=== PATIENT | female | born 1940 | race Caucasian/White ===

== ENCOUNTER → 2019-11-16 | Outpatient (CLI) | payer MEDICARE, BC ==
[2019-11-16 11:51] LABS: HCT 43.4 % (34.0-46.0); HGB 13.9 gm/dL (11.4-16.0); MCH 32.5 pg (25.0-35.0); MCV 101.4 fL (80.0-100.0); Mean Platelet Volume 7.6; Platelet Count 333 k/uL (150-450); RBC 4.28 m/uL (3.80-5.40); RDW 12.2 % (11.5-15.5); WBC 8.6 k/uL (3.8-10.6)
[2019-11-16 11:53] LABS: INR 0.9 (<1.2); Partial Thromboplastin Time 25.2 sec (22.0-30.0)
[2019-11-16 12:00] LABS: Appearance,Urine Cloudy (Clear); Bacteria,Urine Many /hpf; Bilirubin,Urine Negative (Negative); Blood,Urine Negative (Negative); Color,Urine Yellow; Glucose,Urine (UA) Negative (Negative); Hyaline Casts,Urine 1 /lpf (0-2); Ketones,Urine Negative (Negative); Leukocyte Esterase,Urine Large (Negative); Mucus,Urine Rare /hpf; Nitrite,Urine Negative (Negative); PH, Urine 5.5 (5.0-8.0); Protein,Urine Negative (Negative); RBC,Urine 3 /hpf (0-5); Specific Gravity,Urine 1.017 (1.001-1.035); Squamous Epithelial Cell,Urine <1 /hpf (0-4); Urobilinogen,Urine <2.0 mg/dL (<2.0); WBC,Urine 102 /hpf (0-5)
[2019-11-16 12:01] LABS: Albumin 3.8 g/dL (3.5-5.0); Calcium 9.7 mg/dL (8.4-10.2); Potassium 4.6 mmol/L (3.5-5.1); Total Bilirubin 0.9 mg/dL (0.2-1.3)
== END | disposition home or self-care (01) ==
LOC: LABPAT 10:25
PROVIDERS: ATTEND Orthopaedic Surgery
DX: Z01.812 Encounter for preprocedural laboratory examination (principal); Z01.818 Encounter for other preprocedural examination; Z79.01 Long term (current) use of anticoagulants
CPT/HCPCS: 36415; 80053; 81001; 85027; 85610; 85730; 87070; 93005

== ENCOUNTER 2019-12-01 05:32 | Inpatient (IN) | payer MEDICARE, BC ==
[2019-11-25 16:35] VITALS: BMI 25.0
[~2019-12-01 05:32] MED LIST: ACETAMINOPHEN TAB 500 MG TAB PO ONE; DEXAMETHASONE SOD PHOSPHATE 10 MG/ML 1 ML VIAL IV ONE; GABAPENTIN 300 MG CAP PO ONE; LIDOCAINE 1% 20 ML VIAL (10MG/ML) FOR IV START INTRADERMA PRN; MELOXICAM 7.5 MG TAB PO ONE; MIDAZOLAM 2 MG/2 ML VIAL IV PRN; ONDANSETRON 4 MG/2 ML VIAL IVP ONE; SCOPOLAMINE 1.5MG/72HR PATCH TRANSDERM ONE; TRANEXAMIC ACID 1,000 MG in SODIUM CHLORIDE 0.9% 100 ML IVPB ONE
[2019-12-01] MEDS: LACTATED RINGERS 1,000 ML IV SCH ×2 (06:10→23:02)
[2019-12-01] MEDS ORDERED: HEPARIN SODIUM,PORCINE 10,000 UNIT/ML 1 ML VIAL ONE (06:55)
[2019-12-01] MEDS ORDERED: ONDANSETRON 4 MG/2 ML VIAL ONE (06:55)
[2019-12-01] MEDS ORDERED: fentaNYL (PF) 50 MCG/ML 2 ML AMP ONE (06:55)
[2019-12-01] MEDS ORDERED: SODIUM CHLORIDE 0.9% 100 ML BAG ONE (06:55)
[2019-12-01] MEDS ORDERED: TRANEXAMIC ACID 1,000 MG/10 ML VIAL ONE (06:55)
[2019-12-01] MEDS ORDERED: MIDAZOLAM 2 MG/2 ML VIAL ONE (06:55)
[2019-12-01] MEDS ORDERED: LACTATED RINGERS 1,000 ML BAG IV ONE (06:55)
[2019-12-01] MEDS ORDERED: DIAZEPAM 5 MG TAB PO PRN (07:00)
[2019-12-01] MEDS ORDERED: hydrOXYzine PAMOATE 25 MG CAP PO PRN (07:00)
[2019-12-01] MEDS ORDERED: HYDROmorphone 0.5 MG/0.5 ML SYRINGE IVP PRN ×3 (07:00)
[2019-12-01] MEDS ORDERED: NALOXONE 0.4 MG/ML 1 ML VIAL IV PRN (07:00)
[2019-12-01] MEDS ORDERED: ceFAZolin 3,000 MG in SODIUM CHLORIDE 0.9% IRRIGATIO 3,000 ML IRRIGATION ONE (07:30)
[2019-12-01] MEDS: ROPIVACAINE 246.25 MG, EPINEPHrine 0.5 MG, KETOROLAC 30 MG, cloNIDine HCL/PF 80 MCG, WA... MISCELLANE ONE ×10 (07:41→08:18)
[2019-12-01] MEDS ORDERED: LACTATED RINGERS 1,000 ML IV ONE (08:15)
--- NOTE | 2019-12-01 08:39 | FL ---
Fluoroscopy HISTORY: Hip replacement 49 seconds fluoroscopy time supplied to the referring clinician. 2 intraoperative C-arm images docum ent the procedure. See dictated report from orthopedic surgery.
--- NOTE | 2019-12-01 08:41 | XR ---
Right hip HISTORY: Hip replacement 2 intraoperative C-arm images document the seizure.
--- NOTE | 2019-12-01 08:52 | P.OP ---
Date of Procedure: 12/01/19 Preoperative Diagnosis: Severe osteoarthritis right hip Postoperative Diagnosis: Severe osteoarthritis right hip Procedure(s) Performed: Right total hip arthroplasty with a direct anterior approach Implants: Grissom [employer] nephew Polarstem size 7 standard [employer]om [employer]hew R3, 3 hole acetabular shell, 56 mm [employer]hew reflection 6.5 mm cancellus screw, 20 mm 2 [employer] R3, XLPE 20 acetabular liner [employer]hew Oxinium femoral head 36 m, +0 All components were press-fit. The articulation is Oxinium on polyethylene. Anesthesia: spinal Surgeon: Henry Marquez Former Hand #1: Yue Nolan Estimated Blood Loss (ml): 200 Pathology: other (Femoral head) Condition: stable Disposition: PACU Indications for Procedure: After failure of conservative treatment we discussed the surgical and nonsurgical treatment options at length. Patient wishes to proceed with a total hip arthroplasty with a direct anterior approach. Complications specific to this procedure were discussed at length, including but not limited to infection, leg length discrepancy, dislocation, and nerve injury. Patient is aware of all these complications and informed consent was obtained Operative Findings: The operative findings are consistent with severe osteoarthritis of the right hip Description of Procedure: Patient was seen and evaluated in the preoperative area, consent was reviewed, and the surgical site was marked with a skin marker. Patient was then brought to the operating room and given prophylactic antibiotics intravenously. 1 g of Tranexamic acid was also given. A spinal anesthetic was administered by the anesthesia department. The patient was then placed on the [place] table with the bony prominences well-padded. The hip area was then prepped and draped in usual sterile fashion. A universal timeout was then performed, which confirmed the patient's name, surgical site, ALLERGIES, and procedure being performed. Next the incision site was located at 1 cm distal and 1 cm lateral to the anterior superior iliac spine. The skin and subcutaneous tissues were sharply incised. Incision was carefully dissected down to the fascia overlying the tensor fascia chandrika muscle. This fascia was then incised in line with the incision. Next, using blunt finger dissection, the tensor fascia chandrika muscle was dissected off its investing fascia. The muscle was then carefully retracted laterally with a cobra retractor over the lateral neck of the femur. Next, the circumflex vessels were identified and cauterized using the AquaMantis device. The anterior hip capsule was then exposed. The capsule was then opened and an inverted T fashion. Cobra retractors were then placed intracapsularly. The proximal femur was then visualized. The femoral neck was then osteotomized appropriate level above the lesser trochanter. Small amount of traction was placed with the [place] table. A small wedge of bone was then removed from the remaining femoral head. Next, using a corkscrew femoral head was easily removed from the acetabulum. On gross visual inspection, the femoral head had complete loss of articular cartilage in multiple periarticular osteophytes. Attention was then turned to the acetabulum. the acetabulum was exposed and any remaining labrum was excised. Sequential reaming of the acetabulum was performed using fluoroscopic guidance. When the appropriate size was reached, a trial was then placed. The position and fit of the trial was checked with fluoroscopy. The trial was then removed. Then, using fluoroscopic guidance, the final implant was impacted at 20 of anteversion and 40 of abduction, and fully seated in the acetabulum. 2 screws were then placed in the acetabulum. Again fluoroscopy was used to check position of the screws. Next, the liner was then impacted, with a 20 elevated liner located in the anterior superior quadrant. Component locking was confirmed. Attention was then directed to the femur. With the aid of the [place] table, the femur was externally rotated to approximately 130, extended, and abducted under the opposite leg. A side hook was then placed under the proximal femur, and the side hook elevator was used to elevate the proximal femur. Retractors were then placed. A capsular release was performed, as well as a release of the conjoined tendon, which afforded excellent visualization of the proximal femur. Next, a box osteotome was used to lateralize the proximal femur. A hand or machine paster was then used to locate the femoral canal. Sequential broaching was then performed with appropriate size which afforded excellent fixation in the proximal femur. A trial was then placed with appropriate head and neck, and the hip was gently reduced with the aid of the [place] table. Fluoroscopy was then used to check position of the components, as well as to ensure equal leg lengths. The hip was then gently dislocated and the trials were then removed. Final implants were then impacted and the hip was again reduced. Final fluoroscopic x-rays confirmed that the components were in anatomic position, as well as equal leg lengths. The hip was also taken through range of motion, and found to be stable. The hip was then copiously irrigated with antibiotic solution with pulsatile lavage. The hip was then irrigated with Irrisept solution. The soft tissues were then injected with a ropivacaine solution, which consisted of 246.25 mg of ropivacaine, 0.5 mg of epinephrine, 30 mg of Toradol, 80 g of clonidine, and 48.45 mL of sterile water, for a total of 100 mL of fluid injected. A second dose of 1 g of Tranexamic acid was also given. the fascia was then closed with 2-0 strata fix suture. The subcutaneous tissue was closed with 3-0 Vicryl. The subcuticular tissue was closed with 3-0 strata fix suture. The skin was then closed with Dermabond glue and a sterile silver dressing. The patient was then transferred to the recovery room in stable condition. The assistant store director GENOVEVA Shi was required due to the complexity of surgery, and the need for skilled certified surgical first assistant for positioning, draping, exposure, retraction, and closure of the wound.
--- NOTE | 2019-12-01 09:07 | XR ---
Limited right hip HISTORY: Postop Single frontal view of the right hip Patient is status post right hip arthroplasty. Bone mineralization is reduced. Lucency in the soft ti ssues is consistent with postop state. Small ossific density inferior to the femoral neck region may be postoperative. There is anatomic alignment. IMPRESSION: Orthopedic follow-up as described.
[2019-12-01] MEDS: HYDROmorphone 0.5 MG/0.5 ML SYRINGE IVP PRN ×5 (10:55→12:30)
[2019-12-01] MEDS: SODIUM CHLORIDE 0.9% 1,000 ML IV SCH ×2 (19:17→21:30)
[2019-12-01] MEDS: LISINOPRIL 2.5 MG TAB PO SCH (21:27)
[2019-12-01] MEDS: ATORVASTATIN 20 MG TAB PO SCH (21:28)
[2019-12-01] MEDS: ASPIRIN 325 MG TAB PO SCH (21:28)
[2019-12-01] MEDS: HYDROcodone/APAP 5-325MG 1 EACH TAB PO PRN (21:28)
[2019-12-01] MEDS: SENNOSIDES-DOCUSATE SODIUM 1 EACH TAB PO SCH (21:28)
--- NOTE | 2019-12-01 21:49 | P.CONS ---
History of Present Illness - Reason for Consult Consult date: 12/01/19 Medical management Requesting physician: Henry Marquez - Chief Complaint Right hip surgery - History of Present Illness Consultation: This is a pleasant 79-year-old patient of Dr. Wayne. Chronic stable medical conditions include hypertension, hyperlipidemia, osteoarthritis, diverticulosis, 1 functioning kidney,. Patient has a complication of colonoscope he had a sp lenectomy. Patient underwent right total hip arthroplasty. Postprocedure pain is controlled. No nausea vomiting. Laying in bed. Did tolerate her supper. No chest pain or shortness of breath. Lying in bed. Review of systems: GEN.: Tired EYES: None HEENT: None NECK: None RESPIRATORY: None CARDIOVASCULAR: None GASTROINTESTINAL: None GENITOURINARY: None MUSCULOSKELETAL: [Joint pains LYMPHATICS: None HEMATOLOGICAL: None PSYCHIATRY: None NEUROLOGICAL: None Social history: Smoked a pack daily for 25 years stopped in 1979. 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 Alcohol rarely. Family history: Reviewed, noncontributory to presentation Physical examination: VITAL SIGNS: 98, 64, 19, 102/64, 98% room air GENERAL: BMI 25.4, laying in bed comfortable. EYES: Pupils equal. Conjunctiva normal. HEENT: External appearance of nose and ears normal, oral cavity grossly normal. NECK: JVD not raised; masses not palpable. HEART: First and second heart sounds are normal; no edema. LUNGS: Respiratory rate normal; clear to auscultation. ABDOMEN: Soft, nontender, liver spleen not palpable, no masses palpable. PSYCH: Alert and oriented x3; mood and affect normal. NEUROLOGICAL: Cranial nerves grossly intact; no facial asymmetry, power and sensation grossly intact. LYMPHATICS: No lymph nodes palpable in the axilla and neck MUSCULOSKELETAL: Evidence of OA is pretty the hands, dressing over the right hip INVESTIGATIONS, reviewed in the clinical context: Lab. From November 16: White count 8.6 hemoglobin 13.9 potassium 4.6 creatinine 0.97 Assessment: -Right total hip arthroplasty -Essential hypertension -Hyperlipidemia -Primary osteoarthritis multiple joints bilaterally -Colonic diverticulosis -Splenectomy, history of Plan: Home medications resumed. Pain control is in place. Patient is on aspirin for DVT prophylaxis. Care was discussed with the patient. Questions were answered. Thank you Dr. Marquez Past Medical History Past Medical History: CVA/TIA, Hyperlipidemia, Hypertension, Osteoarthritis (OA) Additional Past Medical History / Comment(s): TIA 2013-no residual effects, hx. 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 Smoking Status: Former smoker Past Alcohol Use History: Rare Additional Past Alcohol Use History / Comment(s): quit smoking 1979, smoked from age of 15, 1ppd Past Drug Use History: None Reported - Past Family History Mother Family Medical History: No Reported History Medications and Allergies Home Medications Medication Instructions Recorded Confirmed Type Acetaminophen [Tylenol Arthritis] 650 mg PO Q6H PRN 11/25/19 12/01/19 History Aspercreme W/Lidocaine 1 applic TOPICAL TID PRN 11/25/19 History Aspirin 81 mg PO DAILY 11/25/19 12/01/19 History Atorvastatin [Lipitor] 20 mg PO HS 11/25/19 12/01/19 History Lisinopril [Zestril] 2.5 mg PO HS 11/25/19 12/01/19 History Allergies Allergy/AdvReac Type Severity Reaction Status Date / Time ciprofloxacin [From Cipro] Allergy Itching, Verified 11/25/19 15:30 blistered skin Physical Exam Vitals: Vital Signs Temp Pulse Pulse Resp BP BP Pulse Ox 12/01/19 19:12 98.0 F 64 19 102/64 98 12/01/19 15:19 98.2 F 67 15 130/73 94 L 12/01/19 14:30 66 16 116/77 95 12/01/19 13:25 58 L 16 108/63 99 12/01/19 12:55 60 16 118/66 99 12/01/19 12:30 66 16 106/68 97 12/01/19 12:15 63 16 112/63 97 12/01/19 12:00 66 16 128/78 98 12/01/19 11:25 62 18 112/68 95 12/01/19 10:55 66 16 111/62 97 12/01/19 10:30 63 16 113/63 96 12/01/19 10:00 64 16 108/59 97 12/01/19 09:45 68 16 107/63 99 12/01/19 09:30 64 16 108/64 97 12/01/19 09:15 68 16 99/61 95 12/01/19 09:00 64 16 103/59 93 L 12/01/19 08:47 97 F L 67 16 101/57 95 12/01/19 05:59 97.6 F 73 18 140/76 93 L Intake and Output 12/01/19 12/01/19 12/01/19 06:59 14:59 22:59 Intake Total 300 751 Output Total 400 Balance 300 351 Intake: IV 300 751 Output: Urine 200 Estimated Blood Loss 200 Other: # Voids 1 Weight 76.9 kg 76.9 kg
[2019-12-02] MEDS: HYDROcodone/APAP 5-325MG 1 EACH TAB PO PRN ×4 (04:32→21:58)
[2019-12-02] MEDS: ASPIRIN 325 MG TAB PO SCH ×2 (07:28→21:18)
[2019-12-02] MEDS: MELOXICAM 7.5 MG TAB PO SCH (07:29)
[2019-12-02 07:35] LABS: Basophils # (A) 0.1 k/uL (0-0.2); Basophils % (A) 1 %; Eosinophils % (A) 0 %; HCT 32.3 % (34.0-46.0); Lymphocytes # (A) 2.6 k/uL (1.0-4.8); Lymphocytes % (A) 23 %; MCH 33.3 pg (25.0-35.0); MCHC 32.5 g/dL (31.0-37.0); MCV 102.7 fL (80.0-100.0); Macrocytosis Slight; Mean Platelet Volume 7.6; Monocytes # (A) 1.1 k/uL (0-1.0); Monocytes % (A) 11 %; Neutrophils # (A) 6.9 k/uL (1.3-7.7); Neutrophils % (A) 64 %; Platelet Count 257 k/uL (150-450); RBC 3.14 m/uL (3.80-5.40); RDW 12.4 % (11.5-15.5); WBC 10.9 k/uL (3.8-10.6)
[2019-12-02 07:37] LABS: HGB 10.5 gm/dL (11.4-16.0)
--- NOTE | 2019-12-02 08:31 | P.PN ---
Subjective Progress Note Date: 12/02/19 This is a 79-year-old female who is status post right total hip arthroplasty. This is postoperative day #1 and patient is seen and evaluated at bedside with Dr. Henry Marquez. Patient does complain of pain in the right hip today, but has been up and walking with physical therapy. Patient states that she is concerned about going home at discharge because she has no one around to help her. Patient prefers to go to rehab. Patient denies any fever/chills, numbness, weakness, tingling, abdominal pain, shortness of breath or chest pain. Objective - Vital Signs Vital signs: Vital Signs Temp 97.7 F 12/02/19 07:00 Pulse 58 L 12/02/19 07:00 Resp 16 12/02/19 07:00 BP 110/66 12/02/19 01:47 Pulse Ox 95 12/02/19 07:00 Intake & Output 12/01/19 12/02/19 12/02/19 18:59 06:59 18:59 Intake Total 751 390 Output Total 400 Balance 351 390 Weight 76.9 kg Intake: IV 751 Intake, IV Titration 390 Amount Sodium Chloride 0.9% 1, 390 000 ml @ 65 mls/hr IV . [id number] FUNMILAYO Rx#:[id number] Output: Urine 200 Estimated Blood Loss 200 Other: # Voids 1 - Exam Vital signs are stable. Patient is in no acute distress and is alert and oriented 3. Calf is soft and nontender to palpation. Dressing is clean, dry, and intact. Patient has full foot and ankle motion without pain or difficulty. Neurovascular status and circulatory status are intact. - Labs CBC & Chem 7: 12/02/19 06:26 Labs: Abnormal Lab Results - Last 24 Hours (Table) 12/02/19 Range/Units 06:26 WBC 10.9 H (3.8-10.6) k/uL RBC 3.14 L (3.80-5.40) m/uL Hgb 10.5 L D (11.4-16.0) gm/dL Hct 32.3 L (34.0-46.0) % MCV 102.7 H (80.0-100.0) fL Monocytes # 1.1 H (0-1.0) k/uL Assessment and Plan (1) Osteoarthritis of right hip Current Visit: Yes Status: Acute Code(s): M16.11 - UNILATERAL PRIMARY OSTEOARTHRITIS, RIGHT HIP SNOMED Code(s): 385805930491276 (2) Status post total hip replacement, right Current Visit: Yes Status: Acute Code(s): Z96.641 - PRESENCE OF RIGHT ARTIFICIAL HIP JOINT SNOMED Code(s): 593644450954 Plan: Continue routine postop care and pain control. Continue anticoagulation with aspirin. Weightbearing as tolerated with a walker. Leave dressing in place for 10 days. Appreciate input from medicine. Anticipate discharge to the [facility] Saturday.
[2019-12-02] MEDS ORDERED: ASPIRIN 81 MG PO SCH (09:00)
[2019-12-02] MEDS: ONDANSETRON 4 MG/2 ML VIAL IVP PRN ×2 (10:11→21:23)
[2019-12-02] MEDS: SODIUM CHLORIDE 0.9% 1,000 ML IV SCH (16:34)
--- NOTE | 2019-12-02 17:17 | P.PN ---
Progress Note - Text Progress Note Date: 12/02/19 - Chief Complaint Right hip surgery Interval history: This is a pleasant 79-year-old patient of Dr. Wayne. Chronic stable medical conditions include hypertension, hyperlipidemia, osteoarthritis, diverticulosis, 1 functioning kidney,. Patient has a complication of colonoscope he had a splenectomy. Patient underwent right total hip arthroplasty. Today-sitting up. Some pain of the operative site. Did work with therapy. Did tolerate her diet. No nausea vomiting. No cardiac symptoms Review of systems: Was done for constitutional, cardiovascular, GI, pulmonary. relevant finding as above Active Medications Hydrocodone Bitart/Acetaminophen ([place] 5-325) 1 each PO Q6HR PRN PRN Reason: Pain Scale 1 to 5 Last Admin: 12/02/19 04:32 Dose: 1 each Documented by: Hydrocodone Bitart/Acetaminophen ([place] 5-325) 2 each PO Q6HR PRN PRN Reason: Pain Scale 6 to 10 Last Admin: 12/02/19 16:04 Dose: 2 each Documented by: Aspirin (Aspirin) 325 mg PO BID [facility] Last Admin: 12/02/19 07:28 Dose: 325 mg Documented by: Atorvastatin Calcium (Lipitor) 20 mg PO HS [facility] Last Admin: 12/01/19 21:28 Dose: 20 mg Documented by: Diazepam (Valium) 2.5 mg PO Q8HR PRN PRN Reason: Mild Spasms Hydromorphone HCl (Dilaudid) 0.125 mg IVP Q3HR PRN PRN Reason: Pain Scale 1 to 3 Hydromorphone HCl (Dilaudid) 0.25 mg IVP Q3HR PRN PRN Reason: Pain Scale 4 to 6 Hydromorphone HCl (Dilaudid) 0.5 mg IVP Q3HR PRN PRN Reason: Pain Scale 7 to 10 Hydroxyzine Pamoate (Vistaril) 25 mg PO Q4HR PRN PRN Reason: Nausea, Anxiety, Pain Control Lactated Ringer's (Lactated Ringers) 1,000 mls @ 20 mls/hr IV .Q24H [facility] Last Admin: 12/01/19 23:02 Dose: Not Given Documented by: Sodium Chloride (Saline 0.9%) 1,000 mls @ 65 mls/hr IV .[id number] [facility] Last Admin: 12/02/19 16:34 Dose: Not Given Documented by: Lidocaine HCl (.Xylocaine 1% Inj (10mg/Ml) For Iv Start) 0.1 ml INTRADERMA PER PROTOCOL PRN PRN Reason: IV Start Last Admin: 12/01/19 06:10 Dose: 0.1 ml Documented by: Lisinopril (Zestril) 2.5 mg PO HS [facility] Last Admin: 12/01/19 21:27 Dose: 2.5 mg Documented by: Magnesium Hydroxide (Milk Of Magnesia) 2,400 mg PO DAILY PRN PRN Reason: Constipation Meloxicam (Mobic) 7.5 mg PO DAILY [facility] Last Admin: 12/02/19 07:29 Dose: 7.5 mg Documented by: Naloxone HCl (Narcan) 0.2 mg IV Q2M PRN PRN Reason: Opioid Reversal Ondansetron HCl (Zofran) 4 mg IVP Q8H PRN PRN Reason: Nausea And Vomiting Last Admin: 12/02/19 10:11 Dose: 4 mg Documented by: Senna/Docusate Sodium (Senokot-S) 2 each PO [facility] Last Admin: 12/01/19 21:28 Dose: 2 each Documented by: Physical examination: VITAL SIGNS: 97.9, 82, 16, 11 8/72, 90% on room air GENERAL: Laying in bed, comfortable EYES: Pupils equal. Conjunctiva normal. HEENT: External appearance of nose and ears normal, oral cavity grossly normal. NECK: JVD not raised; masses not palpable. HEART: First and second heart sounds are normal; no edema. LUNGS: Respiratory rate normal; clear to auscultation. ABDOMEN: Soft, nontender, liver spleen not palpable, no masses palpable. PSYCH: Alert and oriented x3; mood and affect normal. MUSCULOSKELETAL: Evidence of OA is pretty the hands, dressing over the right hip INVESTIGATIONS, reviewed in the clinical context: White count 10.9 hemoglobin 10.5 platelets 257 Previous testing Lab. From November 16: White count 8.6 hemoglobin 13.9 potassium 4.6 creatinine 0.97 Assessment: -Right total hip arthroplasty -Essential hypertension -Hyperlipidemia -Primary osteoarthritis multiple joints bilaterally -Colonic diverticulosis -Splenectomy, history of -Acute postop blood loss anemia Plan: Care was discussed with the patient. Questions were answered. She will be going to the rehab. Given the macrocytosis. We'll check a B12 level.
[2019-12-02] MEDS: LISINOPRIL 2.5 MG TAB PO SCH (21:18)
[2019-12-02] MEDS: ATORVASTATIN 20 MG TAB PO SCH (21:18)
[2019-12-02] MEDS: SENNOSIDES-DOCUSATE SODIUM 1 EACH TAB PO SCH (21:18)
[2019-12-03] MEDS: LACTATED RINGERS 1,000 ML IV SCH (03:28)
[2019-12-03] MEDS: HYDROcodone/APAP 5-325MG 1 EACH TAB PO PRN ×4 (04:12→21:46)
[2019-12-03] MEDS: SODIUM CHLORIDE 0.9% 1,000 ML IV SCH ×2 (05:34→22:06)
--- NOTE | 2019-12-03 07:57 | P.PN ---
Subjective Progress Note Date: 12/03/19 This is a 79-year-old female who is status post right total hip arthroplasty. This is postoperative day #2 and patient is seen and evaluated at bedside. Patient states that her pain is much better controlled today. Patient denies any new complaints. Patient denies any fever/chills, numbness, weakness, tingling, abdominal pain, shortness of breath or chest pain. Objective - Vital Signs Vital signs: Vital Signs Temp 98.6 F 12/03/19 02:13 Pulse 79 12/03/19 02:13 Resp 17 12/03/19 02:13 BP 102/62 12/03/19 04:19 Pulse Ox 91 L 12/03/19 02:13 Intake & Output 12/02/19 12/03/19 12/03/19 18:59 06:59 18:59 Intake Total 1188 Balance 1188 Intake: Oral 1188 Other: Voiding Method Toilet # Voids 3 2 - Exam Vital signs are stable. Patient is in no acute distress and is alert and oriented 3. Calf is soft and nontender to palpation. Dressing is clean, dry, and intact. Patient has full foot and ankle motion without pain or difficulty. Neurovascular status and circulatory status are intact. - Labs CBC & Chem 7: 12/02/19 06:26 Assessment and Plan (1) Osteoarthritis of right hip Current Visit: Yes Status: Acute Code(s): M16.11 - UNILATERAL PRIMARY OSTEOARTHRITIS, RIGHT HIP SNOMED Code(s): 594186755622370 (2) Status post total hip replacement, right Current Visit: Yes Status: Acute Code(s): Z96.641 - PRESENCE OF RIGHT ARTIFICIAL HIP JOINT SNOMED Code(s): 424118587860 Plan: Continue routine postop care and pain control. Continue anticoagulation with aspirin. Weightbearing as tolerated with a walker. Leave dressing in place for 10 days. Appreciate input from medicine. Anticipate discharge to the [facility] Saturday.
[2019-12-03] MEDS: MELOXICAM 7.5 MG TAB PO SCH (08:05)
[2019-12-03] MEDS: ASPIRIN 325 MG TAB PO SCH ×2 (08:06→20:00)
[2019-12-03] MEDS ORDERED: PANTOPRAZOLE 40 MG TABLET PO PRN (08:15)
[2019-12-03] MEDS: LISINOPRIL 2.5 MG TAB PO SCH (20:00)
[2019-12-03] MEDS: ATORVASTATIN 20 MG TAB PO SCH (20:00)
[2019-12-03] MEDS: SENNOSIDES-DOCUSATE SODIUM 1 EACH TAB PO SCH (20:00)
--- NOTE | 2019-12-03 21:16 | P.PN ---
Progress Note - Text Progress Note Date: 12/03/19 - Chief Complaint Right hip surgery Interval history: This is a pleasant 79-year-old patient of Dr. Wayne. Chronic stable medical conditions include hypertension, hyperlipidemia, osteoarthritis, diverticulosis, 1 functioning kidney,. Patient has a complication of colonoscope he had a splenectomy. Patient underwent right total hip arthroplasty. Today-feeling better. No new issues. Did work with therapy. Oral intake stable. Review of systems: Was done for constitutional, cardiovascular, GI, pulmonary. relevant finding as above Active Medications Hydrocodone Bitart/Acetaminophen ([place] 5-325) 1 each PO Q6HR PRN PRN Reason: Pain Scale 1 to 5 Last Admin: 12/02/19 04:32 Dose: 1 each Documented by: Hydrocodone Bitart/Acetaminophen ([place] 5-325) 2 each PO Q6HR PRN PRN Reason: Pain Scale 6 to 10 Last Admin: 12/03/19 16:23 Dose: 2 each Documented by: Aspirin (Aspirin) 325 mg PO BID [facility] Last Admin: 12/03/19 20:00 Dose: 325 mg Documented by: Atorvastatin Calcium (Lipitor) 20 mg PO HS [facility] Last Admin: 12/03/19 20:00 Dose: 20 mg Documented by: Diazepam (Valium) 2.5 mg PO Q8HR PRN PRN Reason: Mild Spasms Hydromorphone HCl (Dilaudid) 0.125 mg IVP Q3HR PRN PRN Reason: Pain Scale 1 to 3 Hydromorphone HCl (Dilaudid) 0.25 mg IVP Q3HR PRN PRN Reason: Pain Scale 4 to 6 Hydromorphone HCl (Dilaudid) 0.5 mg IVP Q3HR PRN PRN Reason: Pain Scale 7 to 10 Hydroxyzine Pamoate (Vistaril) 25 mg PO Q4HR PRN PRN Reason: Nausea, Anxiety, Pain Control Lactated Ringer's (Lactated Ringers) 1,000 mls @ 20 mls/hr IV .Q24H [facility] Last Admin: 12/03/19 03:28 Dose: Not Given Documented by: Sodium Chloride (Saline 0.9%) 1,000 mls @ 65 mls/hr IV .[id number] [facility] Last Admin: 12/03/19 05:34 Dose: 65 mls/hr Documented by: Lidocaine HCl (.Xylocaine 1% Inj (10mg/Ml) For Iv Start) 0.1 ml INTRADERMA PER PROTOCOL PRN PRN Reason: IV Start Last Admin: 12/01/19 06:10 Dose: 0.1 ml Documented by: Lisinopril (Zestril) 2.5 mg PO [facility] Last Admin: 12/03/19 20:00 Dose: Not Given Documented by: Magnesium Hydroxide (Milk Of Magnesia) 2,400 mg PO DAILY PRN PRN Reason: Constipation Naloxone HCl (Narcan) 0.2 mg IV Q2M PRN PRN Reason: Opioid Reversal Ondansetron HCl (Zofran) 4 mg IVP Q8H PRN PRN Reason: Nausea And Vomiting Last Admin: 12/02/19 21:23 Dose: 4 mg Documented by: Pantoprazole Sodium (Protonix) 40 mg PO AC-BRKFST PRN PRN Reason: Heartburn Senna/Docusate Sodium (Senokot-S) 2 each PO [facility] Last Admin: 12/03/19 20:00 Dose: 2 each Documented by: Physical examination: VITAL SIGNS: 98.2, 80, 16, 11 7/80, 95% room air GENERAL: Laying in bed, awake EYES: Pupils equal. Conjunctiva normal. HEENT: External appearance of nose and ears normal, oral cavity grossly normal. NECK: JVD not raised; masses not palpable. HEART: First and second heart sounds are normal; no edema. LUNGS: Respiratory rate normal; clear to auscultation. ABDOMEN: Soft, nontender, liver spleen not palpable, no masses palpable. PSYCH: Alert and oriented x3; mood and affect normal. MUSCULOSKELETAL: Evidence of OA is pretty the hands, dressing over the right hip INVESTIGATIONS, reviewed in the clinical context: White count 10.9 hemoglobin 10.5 platelets 257 B12 423, TSH 2.8 Previous testing Lab. From November 16: White count 8.6 hemoglobin 13.9 potassium 4.6 creatinine 0.97 Assessment: -Right total hip arthroplasty -Essential hypertension -Hyperlipidemia -Primary osteoarthritis multiple joints bilaterally -Colonic diverticulosis -Splenectomy, history of -Acute procedure blood loss anemia, as expected from surgery Plan: Stable. Continue current medication treatment plan. Thank you, Dr. Marquez
[2019-12-03] MEDS: MAGNESIUM HYDROXIDE 2,400 MG/10 ML CUP PO PRN (21:51)
[2019-12-04] MEDS: HYDROcodone/APAP 5-325MG 1 EACH TAB PO PRN ×2 (03:33→09:58)
[2019-12-04] MEDS: ONDANSETRON 4 MG/2 ML VIAL IVP PRN (03:34)
[2019-12-04] MEDS: LACTATED RINGERS 1,000 ML IV SCH (05:10)
[2019-12-04 06:22] LABS: Basophils % (A) 0 %; Eosinophils # (A) 0.3 k/uL (0-0.7); Eosinophils % (A) 3 %; HCT 31.2 % (34.0-46.0); HGB 9.9 gm/dL (11.4-16.0); Lymphocytes # (A) 1.8 k/uL (1.0-4.8); Lymphocytes % (A) 15 %; MCH 32.8 pg (25.0-35.0); MCHC 31.7 g/dL (31.0-37.0); MCV 103.3 fL (80.0-100.0); Macrocytosis Slight; Mean Platelet Volume 7.7; Monocytes % (A) 8 %; Neutrophils # (A) 8.8 k/uL (1.3-7.7); Neutrophils % (A) 73 %; Platelet Count 261 k/uL (150-450); RBC 3.02 m/uL (3.80-5.40); RDW 12.4 % (11.5-15.5); WBC 12.1 k/uL (3.8-10.6)
[2019-12-04 07:41] VITALS: BP 126/71; PULSE 87; RESP 16; TEMP 97.6
[2019-12-04] MEDS: MAGNESIUM HYDROXIDE 2,400 MG/10 ML CUP PO PRN (08:07)
[2019-12-04] MEDS: ASPIRIN 325 MG TAB PO SCH (08:08)
--- NOTE | 2019-12-04 08:44 | P.DS ---
Providers Date of admission: 12/01/19 13:37 Expected date of discharge: 12/04/19 Attending physician: Henry Marquez Consults: 12/01/19 07:00 Consult Physician Routine Consulting Provider: Avery Berkowitz Consult Reason/Comments: medical management Do you want consulting provider notified?: Yes Primary care physician: Alexy Wayne - Discharge Diagnosis(es) (1) Osteoarthritis of right hip Current Visit: Yes Status: Acute (2) Status post total hip replacement, right Current Visit: Yes Status: Acute Hospital Course: This is a 79-year-old female with known history of degenerative arthritis of the right hip. The patient presents for evaluation. After discussion and consideration patient elects to proceed with total hip arthroplasty. The patient is seen preoperatively by Dr. Marquez and medically cleared for surgery by their primary care physician. Patient is admitted to [facility] on 12/01/2019 for total hip arthroplasty. The procedures performed without complication or sequelae. The patient is doing well postoperatively. Labs and vital signs are stable on day of discharge. On day of discharge patient's hip incision is healing well. There is minimal erythema. There is no drainage noted at this time. There is minimal soft tissue swelling to the hip and thigh. Patient has full foot and ankle motion without difficulty or pain. Calf is soft and nontender to palpation. Neurovascular status to the right lower extremity is intact. Patient is discharged to rehab in good condition. Opioid start talking form is reviewed and signed at patient bedside. Please see med rec for accurate list of home medications. Plan - Discharge Summary Discharge Rx Participant: No New Discharge Prescriptions: New Aspirin 325 mg PO BID #60 tab HYDROcodone/APAP 5-325MG [[place] 5-325] 1 - 2 tab PO Q6HR PRN #56 tab PRN Reason: Pain Sennosides [Senokot] 2 tab PO DAILY PRN #60 tablet PRN Reason: Constipation No Action Lisinopril [Zestril] 2.5 mg PO HS Atorvastatin [Lipitor] 20 mg PO HS Aspirin 81 mg PO DAILY Acetaminophen [Tylenol Arthritis] 650 mg PO Q6H PRN PRN Reason: Pain Aspercreme W/Lidocaine 1 applic TOPICAL TID PRN PRN Reason: Pain Discharge Medication List Acetaminophen [Tylenol Arthritis] 650 mg PO Q6H PRN 01/08/20 [History] Aspercreme W/Lidocaine 1 applic TOPICAL TID PRN 11/25/19 [History] Aspirin 81 mg PO DAILY 11/25/19 [History] Atorvastatin [Lipitor] 20 mg PO HS 11/25/19 [History] Lisinopril [Zestril] 2.5 mg PO HS 11/25/19 [History] Aspirin 325 mg PO BID #60 tab 12/02/19 [Rx] HYDROcodone/APAP 5-325MG [[place]ucker 5-325] 1 - 2 tab PO Q6HR PRN #56 tab 12/02/19 [Rx] Sennosides [Senokot] 2 tab PO DAILY PRN #60 tablet 12/02/19 [Rx] Follow up Appointment(s)/Referral(s): Henry Marquez DO [Doctor of Osteopathic Medicine] - 12/16/19 1:00 pm Activity/Diet/Wound Care/Special Instructions: Weightbearing as tolerated with walker. Leave dressing intact. Dressing may be removed by home care nurse or by patient in 10 days. May shower with dressing on. Recommend use of compression stockings daily for at least 2 weeks during the day to help prevent swelling and blood clots. May remove at night before sleeping. Please follow-up with [facility] in 2 weeks and call with any questions or concerns, . Discharge Disposition: TRANSFER TO SNF/F
[2019-12-04] MEDS: SODIUM CHLORIDE 0.9% 1,000 ML IV SCH (10:45)
== END 2019-12-04 13:02 | DRG 470 ==
LOC: ORWHC2ENDO 05:32 → EDSTATUS 07:00 → 4SSUR 08:46 → ORWHC2ENDO 13:37 → 4SSUR 13:37
PROVIDERS: ADMIT Orthopaedic Surgery; ATTEND Orthopaedic Surgery
PROC: 0SR906A Replacement of Right Hip Joint with Oxidized Zirconium on Polyethylene Synthetic Substitute, Uncemented, Open Approach (ICD-10-PCS; principal; 2019-12-01 07:00)
DX: M16.11 Unilateral primary osteoarthritis, right hip (principal); D62 Acute posthemorrhagic anemia; E78.2 Mixed hyperlipidemia; I10 Essential (primary) hypertension; N28.81 Hypertrophy of kidney; K57.30 Diverticulosis of large intestine without perforation or abscess without bleeding; Z79.82 Long term (current) use of aspirin; Z79.899 Other long term (current) drug therapy; Z87.891 Personal history of nicotine dependence; Z90.81 Acquired absence of spleen; Z90.49 Acquired absence of other specified parts of digestive tract; Z86.73 Personal history of transient ischemic attack (TIA), and cerebral infarction without residual deficits; Z98.890 Other specified postprocedural states; Z88.1 Allergy status to other antibiotic agents
CPT/HCPCS: 73501; 82607; 84443; 85025; 86850; 86891; 86900; 86901; 88300

== ENCOUNTER 2020-05-29 17:52 | Emergency (ER) | payer MEDICARE, BC ==
[2020-05-29 18:09] VITALS: TEMP 98.5
[2020-05-29] MEDS ORDERED: LIDOCAINE/EPINEPHR/TETRACAINE 5 ML BOTTLE TOPICAL ONE (18:15)
[2020-05-29] MEDS ORDERED: LIDOCAINE 1% INJ 10MG/ML (20 ML MDV) SQ ONE (18:18)
--- NOTE | 2020-05-29 18:21 | ED ---
Fall HPI - General Chief Complaint: Fall Stated Complaint: fall/cheek lac Time Seen by Provider: 05/29/20 18:13 Source: patient Mode of arrival: ambulatory - History of Present Illness Initial Comments: 80-year-old female with history of splenectomy presenting to the emergency department today for chief complaint of left cheek laceration. Patient states that she was in her platform when she tripped falling onto a piece of metal that cut into her cheek. She states that she only hit her cheek she states she did not hit her head lose consciousness she states she did not have a syncopal episode. Patient has a chest pain shortness of breath and due to the upper or lower extremities neck or back. Patient denies any injury to the chest or abdomen. Patient is no additional complaints patient states tetanus is up-to-date. Patient denies noting any other injuries from fall. - Related Data Home Medications Medication Instructions Recorded Confirmed Acetaminophen [Tylenol Arthritis] 650 mg PO Q6H PRN 11/25/19 12/01/19 Aspirin 81 mg PO DAILY 11/25/19 12/01/19 Atorvastatin [Lipitor] 20 mg PO HS 11/25/19 12/01/19 Lisinopril [Zestril] 2.5 mg PO HS 11/25/19 12/01/19 Previous Rx's Medication Instructions Recorded Aspirin 325 mg PO BID #60 tab 12/02/19 HYDROcodone/APAP 5-325MG [[place] 1 - 2 tab PO Q6HR PRN #56 tab 12/02/19 5-325] Sennosides [Senokot] 2 tab PO DAILY PRN #60 tablet 12/02/19 Sennosides-Docusate Sodium 2 each PO HS tab 12/04/19 [Senokot-S] Cephalexin [Keflex] 500 mg PO Q12HR 3 Days #6 cap 05/29/20 Allergies Allergy/AdvReac Type Severity Reaction Status Date / Time ciprofloxacin [From Cipro] Allergy Itching, Verified 05/29/20 18:09 blistered skin Review of Systems ROS Statement: Those systems with pertinent positive or pertinent negative responses have been documented in the HPI. ROS Other: All systems not noted in ROS Statement are negative. Past Medical History Past Medical History: No Reported History Additional Past Medical History / Comment(s): TIA 2013-no residual effects, hx. 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 scherer, sinus problems History of Any Multi-Drug Resistant Organisms: None Reported Past Surgical History: Breast Surgery Additional Past Surgical History / Comment(s): SPLEENECTOMY Past Anesthesia/Blood Transfusion Reactions: No Reported Reaction Past Psychological History: No Psychological Hx Reported Smoking Status: Former smoker Past Alcohol Use History: Rare Past Drug Use History: None Reported - Past Family History Mother Family Medical History: No Reported History General Exam Limitations: no limitations Course Vital Signs 05/29/20 18:06 Temperature 98.5 F Pulse Rate 70 Respiratory 20 Rate Blood Pressure 144/77 O2 Sat by Pulse 98 Oximetry Disposition Clinical Impression: Laceration of left cheek, Fall Disposition: HOME SELF-CARE Condition: Good Instructions (If sedation given, give patient instructions): Care For Your Stitches (ED), Facial Laceration (ED) Additional Instructions: Please use medication as discussed. Please follow-up with pcp in 1-2 days and return for suture removal in 5-6 days. Please return to emergency room if the symptoms increase or worsen or for any other concerns. Prescriptions: Cephalexin [Keflex] 500 mg PO Q12HR 3 Days #6 cap Is patient prescribed a controlled substance at d/c from ED?: No Referrals: Kingston Wayne MD [Primary Care Provider] - 1-2 days Time of Disposition: 18:56
[2020-05-29] MEDS ORDERED: CEPHALEXIN 500MG STARTER PACK 4 CAP BTL PO STA (18:57)
[2020-05-29 19:16] VITALS: RESP 18
[2020-05-29 19:17] VITALS: BP 141/75; PULSE 65
== END 2020-05-29 19:18 | disposition home or self-care (01) ==
LOC: EC 17:52
DX: S01.412A Laceration without foreign body of left cheek and temporomandibular area, initial encounter (principal); Z87.891 Personal history of nicotine dependence; Z88.1 Allergy status to other antibiotic agents; Z86.73 Personal history of transient ischemic attack (TIA), and cerebral infarction without residual deficits; W01.198A Fall on same level from slipping, tripping and stumbling with subsequent striking against other object, initial encounter; Y92.89 Other specified places as the place of occurrence of the external cause
CPT/HCPCS: 99282; J2001

== ENCOUNTER → 2021-11-21 | Outpatient (CLI) | payer MEDICARE, BC | END | disposition home or self-care (01) | LOC: LABWHC1 09:57 | PROVIDERS: ATTEND Orthopaedic Surgery | DX: Z53.9 Procedure and treatment not carried out, unspecified reason (principal) ==

== ENCOUNTER 2021-11-28 09:48 | Day surgery (SDC) | payer MEDICARE, BC ==
[2021-11-21 15:41] VITALS: BMI 24.7
[~2021-11-28 09:48] MED LIST changes: -ACETAMINOPHEN TAB 500 MG TAB PO ONE; -DEXAMETHASONE SOD PHOSPHATE 10 MG/ML 1 ML VIAL IV ONE; -GABAPENTIN 300 MG CAP PO ONE; +LIDOCAINE 1% (10MG/ML) FOR IV START INTRADERMA PRN; -LIDOCAINE 1% 20 ML VIAL (10MG/ML) FOR IV START INTRADERMA PRN; -MELOXICAM 7.5 MG TAB PO ONE; -MIDAZOLAM 2 MG/2 ML VIAL IV PRN; -SCOPOLAMINE 1.5MG/72HR PATCH TRANSDERM ONE; -TRANEXAMIC ACID 1,000 MG in SODIUM CHLORIDE 0.9% 100 ML IVPB ONE; +TRANEXAMIC ACID 1,000 MG in SODIUM CHLORIDE 0.9% 100 ML IVPB PRN
[2021-11-28] MEDS: LACTATED RINGERS 1,000 ML IV SCH (10:36)
[2021-11-28] MEDS ORDERED: TRANEXAMIC ACID 1,000 MG/10 ML VIAL ONE (12:09)
[2021-11-28] MEDS ORDERED: fentaNYL (PF) 50 MCG/ML 2 ML AMP ONE (12:09)
[2021-11-28] MEDS ORDERED: MIDAZOLAM 2 MG/2 ML VIAL ONE (12:09)
[2021-11-28] MEDS ORDERED: SODIUM CHLORIDE 0.9% 100 ML BAG ONE (12:09)
[2021-11-28] MEDS ORDERED: PROPOFOL 10 MG/ML 20 ML VIAL IV ONE (12:09)
[2021-11-28] MEDS ORDERED: ROPIVACAINE 5 MG/ML 30 ML VIAL MISCELLANE ONE ×2 (12:43→13:26)
[2021-11-28] MEDS ORDERED: TRANEXAMIC ACID 1,000 MG/10 ML VIAL IRRIGATION ONE (13:23)
--- NOTE | 2021-11-28 13:30 | P.OP ---
Date of Procedure: 11/28/21 Preoperative Diagnosis: Severe osteoarthritis left hip Postoperative Diagnosis: Severe osteoarthritis left hip Procedure(s) Performed: Total arthroplasty a direct anterior approach Implants: [employer] Polarstem standard size 7 [employer] R3, 3 hole hemispherical acetabular shell, 54 mm [employer] Reflection 6.5 mm cancellus screw, 20 mm, 25 mm [employer] R3, XLPE 20 acetabular liner [employer] Oxinium femoral head 36 m, +0 All components were press-fit. The articulation is Oxinium on polyethylene. Anesthesia: spinal Surgeon: Henry Marquez Fuse Maker #1: Yue Nolan Estimated Blood Loss (ml): 300 Pathology: other (Femoral head) Condition: stable Disposition: PACU Indications for Procedure: After failure of conservative treatment we discussed the surgical and nonsurgical treatment options at length. Patient wishes to proceed with a total hip arthroplasty with a direct anterior approach. Complications specific to this procedure were discussed at length, including but not limited to infection, leg length discrepancy, dislocation, nerve injury, and fracture. Covid-19 was also discussed at length with the patient, and they are aware of the current policies and procedures. The patient was given the option of delaying surgery, but they elect to proceed knowing these risks. Patient is aware of all these complications and informed consent was obtained Operative Findings: The operative findings are consistent with severe osteoarthritis of the left hip Description of Procedure: Patient was seen and evaluated in the preoperative area and the consent was reviewed. The operative site was marked with a skin marker. The patient was then brought to the operating room and given preoperative antibiotics intravenously. 1 g of Tranexamic acid was also given intravenously. A spinal anesthetic was administered by the anesthesia department. The patient was then placed on the [place] table with the bony prominences well-padded. The hip area was then prepped with a ChloraPrep solution and draped in the usual sterile fashion. A universal timeout was then performed, which confirmed the patient's name, surgical site, ALLERGIES, and procedure being performed on the consent. Next the incision site was located at 1 cm distal and 2 cm lateral to the anterior superior iliac spine. The skin and subcutaneous tissues were sharply incised. Incision was carefully dissected down to the fascia overlying the tensor fascia chandrika muscle. This fascia was then incised in line with the incision. Care was taken to stay laterally in order to avoid injuring the lateral femoral cutaneous nerve. Next, using blunt finger dissection, the tensor fascia chandrika muscle was dissected off its investing fascia. The muscle was then carefully retracted laterally with a cobra retractor over the lateral neck of the femur. Next, the circumflex vessels were identified and cauterized using the AquaMantis device. The anterior hip capsule was then exposed. The capsule was then opened and an inverted T fashion. Cobra retractors were then placed intracapsularly. The retractors were maintained intracapsular throughout the procedure. The proximal femur was then visualized. Fluoroscopic x-rays were then taken in order to evaluate the preoperative leg lengths. A small amount of traction was placed on the leg. The femoral neck was then osteotomized at the appropriate level above the lesser trochanter. A small wedge of bone was then removed from the remaining femoral head. Next, using a corkscrew the femoral head was removed from the acetabulum. On gross visual inspection, the femoral head had complete loss of articular cartilage and multiple periarticular osteophytes. The femoral head was then measured. Attention was then turned to the acetabulum. The acetabulum was exposed and any remaining labrum was excised. Sequential reaming of the acetabulum was performed using fluoroscopic guidance until there was a good bed of bleeding cancellus bone. When the appropriate size was reached, a trial was then placed. The position and fit of the trial was checked with fluoroscopy. The trial was then removed. Then, using fluoroscopic guidance, the final implant was impacted at 20 of anteversion and 40 of abduction, and fully seated in the acetabulum. 2 screws were then placed in the acetabulum. Again fluoroscopy was used to check position of the screws. Next, the liner was then impacted, with a 20 elevated liner located in the anterior superior quadrant. Component locking was confirmed. Attention was then directed to the femur. With the aid of the [place] table, the femur was externally rotated to approximately 130, extended, and adducted under the opposite leg. A side hook was then placed under the proximal femur, and the side hook elevator was used to elevate the proximal femur while releasing the capsule. Retractors were then placed. A capsular release was performed, as well as a release of the conjoined tendon, which afforded excellent visualization of the proximal femur. Next, a box osteotome was used to lateralize the proximal femur. A teacher of the handicapped was then used to locate the femoral canal. Sequential broaching was then performed with appropriate size which afforded excellent fixation in the proximal femur. A trial was then placed with appropriate head and neck, and the hip was gently reduced with the aid of the [place] table. Fluoroscopy was then used to check position of the components, as well as to ensure equal leg lengths. The hip was then gently dislocated and the trials were then removed. Final implants were then impacted and the hip was again reduced. Final fluoroscopic x-rays confirmed that the components were in anatomic position, as well as equal leg lengths. The hip was also taken through range of motion, and found to be stable. The hip was then copiously irrigated with antibiotic solution with pulsatile lavage. The hip was then irrigated with Irrisept solution. The soft tissues were then injected with a ropivacaine solution. A second dose of 1 g of Tranexamic acid was also given intravenously. The fascia was then closed with 2-0 strata fix suture. The subcutaneous tissue was closed with 3-0 Vicryl. The subcuticular tissue was closed with 3-0 strata fix suture. The skin was then closed with Exofin skin glue. After the glue and dried, and Optifoam silver impregnated dressing was applied. The patient was then transferred to the recovery room in stable condition. The market research assistant GENOVEVA Shi was required due to the complexity of surgery, and the need for skilled surgical garment assembly supervisor for positioning, draping, exposure, retraction, and closure of the wound.
--- NOTE | 2021-11-28 13:47 | FL ---
EXAMINATION TYPE: FL guidance operating room DATE OF EXAM: 11/28/2021 HISTORY: Fluoroscopy time 44 seconds of fluoroscopy provided. IMPRESSION: 1. Fluoroscopy time.
--- NOTE | 2021-11-28 13:47 | XR ---
EXAMINATION TYPE: XR Hip Limited LT DATE OF EXAM: 11/28/2021 COMPARISON: NONE HISTORY: Postop TECHNIQUE: One view submitted. FINDINGS: There is postsurgical change in near anatomic alignment. There is soft tissue edema and emphysema. IMPRESSION: 1. Postoperative change. Appears in near-anatomic alignment.
[2021-11-28] MEDS ORDERED: NALOXONE 0.4 MG/ML 1 ML VIAL IV PRN (13:55)
[2021-11-28] MEDS ORDERED: HYDROmorphone 0.5 MG/0.5 ML SYRINGE IVP PRN ×2 (13:55)
[2021-11-28] MEDS ORDERED: ONDANSETRON 4 MG/2 ML VIAL IVP PRN (13:55)
[2021-11-28] MEDS ORDERED: HYDROmorphone 0.2 MG/1 ML SYRINGE IVP PRN (13:55)
[2021-11-28] MEDS ORDERED: MAGNESIUM HYDROXIDE 2,400 MG/10 ML CUP PO PRN (13:55)
[2021-11-28] MEDS: HYDROmorphone 0.5 MG/0.5 ML SYRINGE IVP PRN ×2 (14:42→15:38)
[2021-11-28] MEDS: SODIUM CHLORIDE 0.9% 1,000 ML IV SCH (15:56)
[2021-11-28] MEDS: HYDROcodone/APAP 7.5-325MG 1 EACH TAB PO PRN ×2 (18:27→20:45)
[2021-11-28] MEDS: ASPIRIN 325 MG TAB PO SCH (21:00)
[2021-11-28] MEDS ORDERED: SENNOSIDES-DOCUSATE SODIUM 1 EACH TAB PO SCH (21:00)
[2021-11-29] MEDS: HYDROcodone/APAP 7.5-325MG 1 EACH TAB PO PRN ×4 (02:31→15:29)
[2021-11-29 05:28] VITALS: BP 108/67; PULSE 68; RESP 16; TEMP 98.8
[2021-11-29 07:27] LABS: Basophils % (A) 0 %; Eosinophils # (A) 0.1 k/uL (0-0.7); Eosinophils % (A) 1 %; HCT 35.6 % (34.0-46.0); Hypochromasia Slight; Lymphocytes % (A) 36 %; MCH 33.9 pg (25.0-35.0); MCHC 31.9 g/dL (31.0-37.0); MCV 106.5 fL (80.0-100.0); Macrocytosis Moderate; Mean Platelet Volume 7.4; Monocytes # (A) 1.1 k/uL (0-1.0); Monocytes % (A) 14 %; Neutrophils # (A) 3.7 k/uL (1.3-7.7); Neutrophils % (A) 45 %; Platelet Count 323 k/uL (150-450); RBC 3.34 m/uL (3.80-5.40); RDW 13.3 % (11.5-15.5); WBC 8.3 k/uL (3.8-10.6)
[2021-11-29 07:43] LABS: HGB 11.3 gm/dL (11.4-16.0)
[2021-11-29] MEDS: LACTATED RINGERS 1,000 ML IV SCH (07:53)
[2021-11-29] MEDS: SODIUM CHLORIDE 0.9% 1,000 ML IV SCH ×2 (07:53→09:29)
[2021-11-29] MEDS ORDERED: MELOXICAM 7.5 MG TAB PO SCH (09:00)
[2021-11-29 09:12] LABS: Eosinophils # (M) 0.25 k/uL (0-0.7); Lymphocytes # (M) 2.82 k/uL (1.0-4.8); Monocytes # (M) 1.49 k/uL (0-1.0); Neutrophils % (M) 47 %; Nucleated Red Blood Cells 0 /100 WBC (0-0); Total Cells Counted 200
[2021-11-29 09:18] LABS: Anisocytosis (M) Present; Poikilocytosis (M) Present
[2021-11-29] MEDS: ASPIRIN 325 MG TAB PO SCH (09:27)
--- NOTE | 2021-11-29 12:05 | P.DS ---
Providers Expected date of discharge: 11/29/21 Attending physician: Henry Marquez Consults: 11/28/21 13:55 Consult Physician Routine Consulting Provider: Kingtson Wayne Consult Reason/Comments: medical management Do you want consulting provider notified?: Yes 11/28/21 16:48 Consult Physician Routine Consulting Provider: Norma Sylvester Consult Reason/Comments: medical management Do you want consulting provider notified?: Yes Primary care physician: Alexy Wayne - Discharge Diagnosis(es) (1) Osteoarthritis of left hip Current Visit: Yes Status: Acute (2) Status post total hip replacement, left Current Visit: Yes Status: Acute Hospital Course: This is an 81 -year-old female with a known history of degenerative arthritis of the left hip. The patient presented to the orthopedic office for evaluation and treatment. After discussion and consideration the patient elects to proceed with a left anterior total hip arthroplasty. The patient was seen preoperatively by her primary care physician and cleared for surgery. The patient was admitted to [facility] on 11/28/2021 for a left anterior total hip arthroplasty. The procedure was performed without complication or sequelae. The patient is doing well postoperatively. Labs and vital signs are stable the day of discharge. On the day of discharge the patient's hip incision is healing well. There is minimal erythema. There is no drainage noted at this time. There is minimal soft tissue swelling to the hip and thigh. The patient has full foot and ankle motion without difficulty or pain. Neurovascular status to the left lower extremity is intact. The patient will be discharged home today in stable condition. Pertinent Studies: Laboratory Tests 11/29/21 06:14 WBC 8.3 RBC 3.34 L Hgb 11.3 L D Hct 35.6 MCV 106.5 H Patient Condition at Discharge: Stable Plan - Discharge Summary Discharge Rx Participant: Yes New Discharge Prescriptions: New Sennosides [Senokot] 2 tab PO DAILY PRN #60 tablet PRN Reason: Constipation Aspirin 325 mg PO BID #60 tab HYDROcodone/APAP 7.5-325MG [[place] 7.5-325] 1 - 2 tab PO Q6H PRN #32 tab PRN Reason: Pain Ondansetron Odt [Zofran Odt] 1 tab PO Q8HR PRN #10 tab PRN Reason: Nausea No Action Atorvastatin [Lipitor] 20 mg PO HS Aspirin 81 mg PO DAILY Acetaminophen [Tylenol Arthritis] 650 mg PO Q6H PRN PRN Reason: Pain Sennosides [Senokot] 2 tab PO DAILY PRN #60 tablet PRN Reason: Constipation Cholecalciferol [Vitamin D3 (25 Mcg = 1000 Iu)] 75 mcg PO DAILY Multivitamin [Multivitamins Adult Gummies] 1 each PO DAILY Pseudoephedrine [Sudafed] 30 mg PO Q4H PRN PRN Reason: sinus allergies Joint Supplement 1 tab PO DAILY [place] 650 mg PO DAILY Vitamin B Complex 1 each PO DAILY Acetaminophen [Tylenol Arthritis] 650 mg PO DAILY PRN PRN Reason: Pain Discharge Medication List Acetaminophen [Tylenol Arthritis] 650 mg PO Q6H PRN 11/25/19 [History] Aspirin 81 mg PO DAILY 11/25/19 [History] Atorvastatin [Lipitor] 20 mg PO HS 11/25/19 [History] Sennosides [Senokot] 2 tab PO DAILY PRN #60 tablet 12/02/19 [Rx] Acetaminophen [Tylenol Arthritis] 650 mg PO DAILY PRN 11/21/21 [History] [place] 650 mg PO DAILY 11/21/21 [History] Cholecalciferol [Vitamin D3 (25 Mcg = 1000 Iu)] 75 mcg PO DAILY 11/21/21 [History] Joint Supplement 1 tab PO DAILY 11/21/21 [History] Multivitamin [Multivitamins Adult Gummies] 1 each PO DAILY 11/21/21 [History] Pseudoephedrine [Sudafed] 30 mg PO Q4H PRN 11/21/21 [History] Vitamin B Complex 1 each PO DAILY 11/21/21 [History] Aspirin 325 mg PO BID #60 tab 11/28/21 [Rx] HYDROcodone/APAP 7.5-325MG [[place] 7.5-325] 1 - 2 tab PO Q6H PRN #32 tab 11/28/21 [Rx] Ondansetron Odt [Zofran Odt] 1 tab PO Q8HR PRN #10 tab 11/28/21 [Rx] Sennosides [Senokot] 2 tab PO DAILY PRN #60 tablet 11/28/21 [Rx] Follow up Appointment(s)/Referral(s): Henry Marquez DO [Doctor of Osteopathic Medicine] - 12/14/21 1:30 pm Activity/Diet/Wound Care/Special Instructions: Weightbearing as tolerated with walker. Leave dressing intact. Dressing may be removed by home care nurse or by patient in 7 days. Then change dressing twice daily until follow up. May shower with initial dressing intact and after removal. If dressing become saturated, please remove. Please take aspirin 325mg twice daily for 30 days to prevent blood clots. Recommend use of compression stockings daily until follow up to help prevent swelling and blood clots. May remove at night before sleeping. Please follow-up with [facility] in 2 weeks and call with any questions or concerns, . Discharge Disposition: HOME WITH HOME HEALTH SERVICES
--- NOTE | 2021-11-29 16:56 | CONS ---
CONSULTATION REASON FOR CONSULTATION: Advice regarding DVT and other medical issues requested by [facility]. HISTORY OF PRESENT ILLNESS: This 81-year-old woman with a past history of DVT, history of bowel obstruction, history of breast surgery, history of splenectomy, history and recent ( ) sciatica being followed by [facility], was admitted after left hip total hip joint arthroplasty. There is no history of any fevers, rigors or chills. No history of headache, loss of consciousness or seizure. Patient is complaining of severe left hip pain at this time. PAST MEDICAL HISTORY: History of DVT, history of TIA, history of breast surgery, history of bowel resection, history of splenectomy. MEDICATIONS: Home medications aspirin, Tylenol, Senokot, pseudoephedrine, Lipitor, vitamin D3, alfalfa, vitamin B complex, multivitamins, Senna, ondansetron. Doses reviewed. ALLERGIES: CIPROFLOXACIN. FAMILY HISTORY: No history of heart attacks or strokes in the family. SOCIAL HISTORY: History of occasional alcohol intake. Previous smoker. REVIEW OF SYSTEMS: ENT Diminished hearing and vision. CARDIOVASCULAR No angina or palpitations. RESPIRATORY As mentioned earlier. GI As mentioned earlier. No dysuria or hematuria. NERVOUS No numbness or weakness. ALLERGY/IMMUNOLOGY No asthma or hayfever. MUSCULOSKELETAL As mentioned earlier. HEMATOLOGY/ONCOLOGY Negative. ENDOCRINE No history of diabetes or hypothyroidism. CONSTITUTIONAL As mentioned earlier. DERMATOLOGY Negative. RHEUMATOLOGY Negative, PSYCHIATRY As mentioned earlier. PHYSICAL EXAMINATION: Pulse 68, blood pressure 108/67, respirations 16, temperature 98.8, pulse ox 100% on room air. HEENT: Conjunctivae normal. Oral mucosa moist. NECK: No jugular venous distention. No lymph node enlargement. CARDIOVASCULAR: S1, S2, muffled. No S3, no S4, RESPIRATORY: Diminished breath sounds at the bases. No rhonchi, no crackles. ABDOMEN: Soft, nontender. LEGS: Status post left hip arthroplasty. NERVOUS SYSTEM: Higher functions mentioned earlier. Moves all four limbs. No focal motor or sensory deficits. LYMPHATICS: No lymph node in neck or axilla. SKIN: No rash. JOINTS: No active deforming arthropathy. LAB STUDIES: WBC 8, hemoglobin 11.3. Other labs are not available. ASSESSMENT: 1. Status post left total knee arthroplasty for severe degenerative joint disease. 2. Left hip pain. 3. History of DVT. 4. History of sciatica recent on the left. 5. History of bowel resection. 6. History of DJD. 7. History of splenectomy. 8. History of colectomy. 9. History of depression. 10.Remote history of nicotine dependence. 11.FULL CODE. RECOMMENDATIONS: This 81-year-old woman who presented with multiple medical issues, will monitor the patient closely continue, continue the current management and continue symptomatic treatment. Pain management. Resume the home medications. DVT prophylaxis. Incentive spirometry. Peoplesoft Administrator consulted with the patient, seems to have poor social support at home and further recommendations to follow. Thank you, Dr. Marquez, for letting us participate in the care of your patient. MMODL / IJN: [id number] /
== END 2021-11-29 16:02 | disposition home health service (06) ==
LOC: OR 09:48 → 5NMEDONC 13:47 → OR 11-29 16:02
PROVIDERS: ATTEND Orthopaedic Surgery
DX: M16.12 Unilateral primary osteoarthritis, left hip (principal); I12.9 Hypertensive chronic kidney disease with stage 1 through stage 4 chronic kidney disease, or unspecified chronic kidney disease; N18.30 Chronic kidney disease, stage 3 unspecified; E78.2 Mixed hyperlipidemia; Z86.73 Personal history of transient ischemic attack (TIA), and cerebral infarction without residual deficits; Z98.42 Cataract extraction status, left eye; Z98.41 Cataract extraction status, right eye; Z98.890 Other specified postprocedural states; Z97.3 Presence of spectacles and contact lenses; Z96.641 Presence of right artificial hip joint; Z87.891 Personal history of nicotine dependence; Z87.440 Personal history of urinary (tract) infections; Z90.81 Acquired absence of spleen; Z79.82 Long term (current) use of aspirin; Z79.891 Long term (current) use of opiate analgesic; Z79.899 Other long term (current) drug therapy; Z88.6 Allergy status to analgesic agent; E78.00 Pure hypercholesterolemia, unspecified
CPT/HCPCS: 97162; 97166; 85025; 88300; 87635; 73501; 27130; C1776; J2250; J0690 ×2; J2405; J3010; J2795; J2704; J1170; 86850; 86900; 86901

== ENCOUNTER → 2022-05-24 | Outpatient (CLI) | payer MEDICARE, BC ==
--- NOTE | 2022-05-25 10:40 | MR ---
EXAMINATION TYPE: MR cervical spine wo con DATE OF EXAM: 05/24/2022 5:42 PM COMPARISON: NONE HISTORY: No prior, neck pain for several months with headaches and right arm numbness/weakness Multiplanar MultiSpin echo imaging of the cervical spine was performed. Comparison: none C2-C3: No evidence for degenerative disc disease. No disc bulge/herniation or protrusion. No Canal stenosis. Foramina are patent bilaterally. C3-C4: No evidence for degenerative disc disease. No disc bulge/herniation or protrusion. No Canal stenosis. Foramina are patent bilaterally. C4-C5: Mild decreased signal and loss of height compatible with degenerative disc disease. Posterocen tral and to the right disc bulge mildly effaces the ventral thecal sac. There is evidence of degenera tive change of the cervical apophyseal joints right greater than left with mild right foraminal encro achment seen. C5-C6: Mild to moderate degenerative disc disease. Posterior disc bulge effaces the ventral thecal sa c with mild ventral cord contact. There is mild to moderate central stenosis. Early compressive myelo chayito difficult to exclude. Bilateral neural foraminal encroachment right greater than left. C6-C7: Mild degenerative disc disease with posterior disc bulge. Mild effacement of the ventral theca l sac without central stenosis or cord contact. Mild left-sided foraminal encroachment. C7-T1: No evidence for degenerative disc disease. No disc bulge/herniation or protrusion. No Canal stenosis. Foramina are patent bilaterally. Cervical segments are intact. There is normal alignment. Cervical spinal cord is of normal signal. Craniovertebral junction relationships are within normal limits. IMPRESSION: 1. Multilevel degenerative disc disease. 2. 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 3. Neural foraminal encroachment at various levels as outlined above.
== END | disposition home or self-care (01) ==
LOC: RADMRIMAIN 17:08
PROVIDERS: ATTEND Physical Medicine & Rehabilitation
DX: M50.123 Cervical disc disorder at C6-C7 level with radiculopathy (principal); M99.71 Connective tissue and disc stenosis of intervertebral foramina of cervical region
CPT/HCPCS: 72141

== ENCOUNTER → 2023-02-15 | Outpatient (CLI) | payer MEDICARE, BC ==
--- NOTE | 2023-02-15 16:00 | MR ---
EXAMINATION TYPE: MR shoulder RT wo con DATE OF EXAM: 02/15/2023 COMPARISON: Outside right shoulder x-ray 1 week ago. HISTORY: Rt Shoulder pain, decreased ROM for one year. TECHNIQUE: Multiplanar, multisequence imaging of the right shoulder is performed without contrast. FINDINGS: Rotator Cuff: Some fluid signal surrounds the bursal aspect of the supraspinatus tendon. There is foc al increased signal within the posterior fibers of the infraspinatus tendon sagittal images 8 through 13. Rotator cuff muscle bulk is preserved. Acromioclavicular Joint: Moderate capsular hypertrophy. Mild narrowing. Mild spurring. Some loss of t he underlying fat plane sagittal image 14 of the myotendinous junction. Distal acromion morphology un remarkable. Glenohumeral Joint: Moderate size joint effusion extending anterior medially. No significant spurring . Labrum: Increased signal superior labrum consistent with degenerative tearing. Biceps Tendon: The long head of biceps is in normal location within bicipital groove. Some increased signal intracapsular portion sagittal image 13. Bone marrow signal: A few tiny subchondral cysts in the superior humeral head. Tiny focal osseous john ma posterior superior humeral head coronal image 23. Other: No additional significant abnormality is appreciated. IMPRESSION: 1. AC joint arthropathy with suggestion of underlying impingement. 2. Partial tearing of the infraspinatus tendon. Partial tearing of the long head of biceps tendon. Mo derate-sized glenohumeral joint effusion. There is subdeltoid/subacromial bursitis. Superior labral t ear is noted.
== END | disposition home or self-care (01) ==
LOC: RADMRIMAIN 11:40
PROVIDERS: ATTEND Orthopaedic Surgery
DX: M19.011 Primary osteoarthritis, right shoulder (principal); M25.811 Other specified joint disorders, right shoulder; M75.111 Incomplete rotator cuff tear or rupture of right shoulder, not specified as traumatic; M25.411 Effusion, right shoulder

== ENCOUNTER → 2023-07-16 | Outpatient (CLI) | payer MEDICARE, BC ==
--- NOTE | 2023-07-16 12:33 | MR ---
EXAMINATION TYPE: MR lumbar spine wo con DATE OF EXAM: 07/16/2023 COMPARISON: None HISTORY: Chronic lower back pain, RLE radiculopathy. TECHNIQUE: Multiplanar, multisequence images of the lumbar spine were acquired without IV contrast. L1-L2: Moderate to severe disc desiccation broad-based posterior disc bulge greatest posterior centra lly and to the right. There is mild central stenosis with right lateral recess stenosis and foraminal encroachment. L2-L3: Moderate to severe disc desiccation noted. Broad-based posterior disc bulge greatest posterior centrally and to the left where there is borderline stenosis. There is left lateral recess stenosis and left foraminal encroachment. Facet joint arthropathy. L3-L4: Mild disc desiccation noted. Mild posterior disc bulge. There is mild effacement of the ventra l thecal sac. No central stenosis or lateral recess stenosis. Mild bilateral foraminal encroachment. Mild facet joint arthropathy. L4-L5: Severe disc desiccation with vacuum disks noted. Grade 1 anterolisthesis L4 on L5 related to s evere degenerative facet arthropathy. Right paracentral disc protrusion is noted situated strategical ly at the level of the right neural foramen resulting in severe narrowing. No evidence for central st enosis. Left neural foramen is mildly narrowed. L5-S1: Vacuum disc noted with grade 1 retrolisthesis of 3 mm of L5 on S1. Posterior disc bulge mild e ffacement ventral thecal sac. No evidence for disc herniation or central stenosis. Mild left-sided fo raminal encroachment. Lumbar segments are intact. No paraspinal masses are identified. Conus medullaris has a normal appe arance. IMPRESSION: 1. Multilevel degenerative disc disease 2. Varying degrees of central stenosis and lateral recess stenosis without foraminal encroachment. 3. Right paracentral disc protrusion at L4-5 as discussed above.
--- NOTE | 2023-07-16 14:11 | CT ---
EXAMINATION TYPE: CT lumbar spine wo con CT DLP: 1388 mGycm, Automated exposure control for dose reduction was used. DATE OF EXAM: 07/16/2023 12:33 PM COMPARISON: 07/16/2023 MRI same day CLINICAL INDICATION:Female, 83 years old with history of M54.50 LOW BACK PAIN M47.26SPONDYLOLISIS; PH H, chronic back pain and sciatica TECHNIQUE: Multiple axial images were obtained from the midportion of T11 through the sacroiliac hermila nts. Soft tissue and bone windows in coronal and sagittal planes were obtained and reviewed. 3-D ref ormats of the bones were created on a separate workstation and submitted for review. Contrast used:none. Oral contrast used: none. FINDINGS: Alignment: There are 5 lumbar type vertebral bodies. Mild scoliosis changes are seen throughout the s pine. Bone: No evidence of fracture is identified. Multilevel degeneration changes of the spine with osteo phyte formation and vacuum disc phenomena disc space narrowing and facet joint arthropathy. Discs: T12-L1: No spinal canal or neural foraminal stenosis is identified. L1-L2: Facet joint arthropathy and disc bulging result with mild to moderate spinal canal stenosis an d mild to moderate bilateral neural foraminal stenosis. L2-L3: Facet joint arthropathy, osteophytes and disc bulging result in mild spinal canal stenosis and mild to moderate bilateral neural foraminal stenosis. L3-L4: Facet joint arthropathy and disc bulging result with mild spinal canal stenosis and mild bilat eral neural foraminal stenosis. L4-L5: Paracentral protrusion less well appreciated on CT imaging compared to 07/16/2023 MRI. Facet j oint arthropathy and disc bulging result with moderate spinal canal stenosis and moderate to severe b ilateral neural foraminal stenosis. L5-S1: Facet joint arthropathy and disc bulging result with mild spinal canal stenosis and moderate b ilateral neural foraminal stenosis. Other: Hyperdense left renal cyst. Findings likely representing proteinaceous/hemorrhagic cyst. Measu ring 76 Hounsfield units. IMPRESSION: 1. Moderate to severe degeneration changes of the spine. 2. Atherosclerosis of the arterial vasculature.
== END | disposition home or self-care (01) ==
LOC: RADMRIMAIN 11:32
PROVIDERS: ATTEND Orthopaedic Surgery
DX: M47.26 Other spondylosis with radiculopathy, lumbar region (principal); M51.16 Intervertebral disc disorders with radiculopathy, lumbar region; M99.73 Connective tissue and disc stenosis of intervertebral foramina of lumbar region; G89.29 Other chronic pain; I70.8 Atherosclerosis of other arteries
CPT/HCPCS: 72131; 72148

== ENCOUNTER 2023-08-03 16:05 | Emergency (ER) | payer MEDICARE, BC ==
[2023-08-03] MEDS ORDERED: HYDROcodone/APAP 7.5-325MG 1 EACH TAB PO ONE (16:52)
[2023-08-03] MEDS ORDERED: ONDANSETRON ODT 4 MG TAB PO STA (16:52)
--- NOTE | 2023-08-03 17:25 | XR ---
EXAMINATION TYPE: XR wrist complete RT DATE OF EXAM: 08/03/2023 CLINICAL HISTORY: Fall with pain TECHNIQUE: Frontal, lateral and oblique images of the right wrist are obtained. COMPARISON: None FINDINGS: Osseous structures are demineralized. There is acute comminuted impacted displaced intra-ar ticular fracture through the distal radial meta-epiphysis. Distal ulna is intact. Moderate to severe triscaphe degenerative change and degenerative change at base of first metacarpal. Overlying soft tis mark is unremarkable. Calcification of the triangular fibrocartilage suggestive of chondrocalcinosis i s noted. IMPRESSION: There is acute comminuted impacted displaced intra-articular fracture through the distal radial meta-epiphysis.
[2023-08-03 17:54] VITALS: BP 162/95; RESP 18
--- NOTE | 2023-08-03 18:00 | CT ---
EXAMINATION TYPE: CT brain cspine wo con, CT facial bones wo con DATE OF EXAM: 08/03/2023 COMPARISON: CT brain 2013 HISTORY: fall. lac to face, neck pain. CT DLP: 1110 (accession [id number]), 1110 (combined) (accession [id number]) mGycm. Automated Exposure Con trol for Dose Reduction was Utilized. TECHNIQUE: CT scan of the head , facial bones, and cervical spine are performed without contrast. FINDINGS: There is no acute intracranial hemorrhage or midline shift identified. Mild to moderate v entricular and sulcal prominence is seen. Ybhyvhuj-ck-lbckvr low-attenuation the deep and periventric ular white matter is present. The calvarium is intact. The mandible is intact. Temporomandibular joints are maintained bilaterally. Zygomatic arches are intact bilaterally. Nasal bones are intact. Orbital floors and alfredo are intact. The globes are intact bilaterally. Intraconal fat is preserved. The maxilla is intact. The pterygoid plates are intact. There is near complete opacification with calcification in the right maxillary si nus. The remainder of the paranasal sinuses are clear. Cervical spine is visualized in its entirety from C1 through upper thoracic levels and demonstrates s atisfactory alignment without evidence of acute fracture or dislocation. Prevertebral soft tissue ap pears within normal limits. The C1-C2 articulation is within normal limits on the coronal images. T here is grade 1 retrolisthesis C5 on C6. Vertebral body heights are maintained. Xlzz-rb-pyhcdihj mult ilevel disc space narrowing C4-C5 through C6-C7 levels is present. Multilevel posterior spur disc com plexes efface the anterior thecal sac. Moderate calcified plaque bilateral carotid bulb level is seen . IMPRESSION: 1. There is no acute fracture or dislocation evident in the cervical spine. 2. No acute intracranial hemorrhage or midline shift is seen. 3. No acute displaced facial bone fracture.
[2023-08-03] MEDS ORDERED: ACET/COD 300 MG/30 MG STARTER PACK 6 TAB BTL PO STA (18:30)
--- NOTE | 2023-08-03 18:31 | ED ---
Fall HPI - General Chief Complaint: Fall Stated Complaint: fall Time Seen by Provider: 08/03/23 16:37 Source: patient Mode of arrival: wheelchair - History of Present Illness Initial Comments: 83-year-old female presenting with chief complaint of fall. She was walking her dog when she had a trip and fall. She is complaining of right wrist pain. Patient has an abrasion to the right cheek. She denies any loss of consciousness or blood thinners. Admits to nausea with no vomiting. No neck pain. No vision or hearing changes. No dizziness. No chest pain or difficulty breathing. No other extremity injuries. - Related Data Home Medications Medication Instructions Recorded Confirmed Acetaminophen [Tylenol Arthritis] 650 mg PO Q6H PRN 11/25/19 12/01/19 Aspirin 81 mg PO DAILY 11/25/19 11/28/21 Atorvastatin [Lipitor] 20 mg PO HS 11/25/19 11/28/21 Acetaminophen [Tylenol Arthritis] 650 mg PO DAILY PRN 11/21/21 11/28/21 [place] 650 mg PO DAILY 11/21/21 11/21/21 Cholecalciferol [Vitamin D3 (25 75 mcg PO DAILY 11/21/21 11/21/21 Mcg = 1000 Iu)] Joint Supplement 1 tab PO DAILY 11/21/21 Multivitamin [Multivitamins Adult 1 each PO DAILY 11/21/21 11/21/21 Gummies] Pseudoephedrine [Sudafed] 30 mg PO Q4H PRN 11/21/21 11/28/21 Vitamin B Complex 1 each PO DAILY 11/21/21 11/21/21 Previous Rx's Medication Instructions Recorded Sennosides [Senokot] 2 tab PO DAILY PRN #60 tablet 12/02/19 Aspirin 325 mg PO BID #60 tab 11/28/21 HYDROcodone/APAP 7.5-325MG [[place] 1 - 2 tab PO Q6H PRN #32 tab 11/28/21 7.5-325] Ondansetron Odt [Zofran Odt] 1 tab PO Q8HR PRN #10 tab 11/28/21 Sennosides [Senokot] 2 tab PO DAILY PRN #60 tablet 11/28/21 Acetaminophen-Codeine 300-30mg 1 tab PO Q4H PRN 3 Days #18 tablet 08/03/23 [Tylenol w/codeine #3] Allergies Allergy/AdvReac Type Severity Reaction Status Date / Time ciprofloxacin [From Cipro] Allergy Itching, Verified 08/03/23 16:31 blistered skin Review of Systems ROS Statement: Those systems with pertinent positive or pertinent negative responses have been documented in the HPI. ROS Other: All systems not noted in ROS Statement are negative. Past Medical History Past Medical History: CVA/TIA, Hyperlipidemia Additional Past Medical History / Comment(s): TIA 2013-no residual effects, hx. 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, sinus problems History of Any Multi-Drug Resistant Organisms: None Reported Past Surgical History: Breast Surgery, Joint Replacement Additional Past Surgical History / Comment(s): SPLEENECTOMY, boo hip Past Anesthesia/Blood Transfusion Reactions: No Reported Reaction Past Psychological History: No Psychological Hx Reported Smoking Status: Former smoker Past Alcohol Use History: None Reported Past Drug Use History: None Reported - Past Family History Mother Family Medical History: No Reported History General Exam Limitations: no limitations General appearance: alert, in no apparent distress Head exam: Present: normocephalic, normal inspection Expanded Head exam: Present: abrasion (Right cheek) Eye exam: Present: normal appearance, PERRL, EOMI. Absent: scleral icterus, conjunctival injection Neck exam: Present: normal inspection, full ROM. Absent: tenderness Respiratory exam: Present: normal lung sounds bilaterally. Absent: respiratory distress, wheezes, rales, rhonchi, stridor Cardiovascular Exam: Present: regular rate, normal rhythm, normal heart sounds. Absent: systolic murmur, diastolic murmur, rubs, gallop, clicks Right Forearm Wrist exam: Present: tenderness, swelling. Absent: normal inspection, full ROM Vascular: Absent: vascular compromise Neurological exam: Present: alert, oriented X3, CN II-XII intact Expanded Patient oriented to: Present: person, place, time Speech: Present: fluid speech Cranial nerves: EOM's Intact: Normal Eye Response: (4) open spontaneously Motor Response: (6) obeys commands Verbal Response: (5) oriented Paul Total: 15 Psychiatric exam: Present: normal affect, normal mood Skin exam: Present: warm, dry, intact, normal color. Absent: rash Course Vital Signs 08/03/23 08/03/23 16:28 17:31 Temperature 98.0 F Pulse Rate 79 66 Respiratory 20 18 Rate Blood Pressure 123/82 162/95 O2 Sat by Pulse 94 L 95 Oximetry Procedures - Orthopedic Splinting/Casting Injury #1 Side: right Upper Extremity Injury Location: wrist Upper Extremity Immobilizer: sugar tong splint Medical Decision Making - Medical Decision Making Was pt. sent in by a medical professional or institution (, [facility], [facility], urgent care, hospital, or group home...) When possible be specific @ -No Did you speak to anyone other than the patient for history (EMS, parent, family, police, friend...)? What history was obtained from this source @ -No Did you review nursing and triage notes (agree or disagree)? Why? @ -I reviewed and agree with nursing and triage notes Were old charts reviewed (outside hosp., previous admission, EMS record, old EKG, old radiological studies, urgent care reports/EKG's, group home records)? Report findings @ -No old charts were reviewed Differential Diagnosis (chest pain, altered mental status, abdominal pain women, abdominal pain men, vaginal bleeding, weakness, fever, dyspnea, syncope, headache, dizziness, GI bleed, back pain, seizure, CVA, palpatations, mental health, musculoskeletal)? @ -Differential Musculoskeletal Muscular strain, contusion, ligament sprain, fracture, arthritis, septic arthritis, bursitis, cellulitis, muscle spasm, nerve compression, DVT, arterial occlusion, herpes zoster, electrolyte abnormality, tumor.... This is not meant to be in all inclusive list EKG interpreted by me (3pts min.). @ -As above X-rays interpreted by me (1pt min.). @ -There is acute comminuted impacted displaced intra-articular fracture through the distal radial meta-epiphysis CT interpreted by me (1pt min.). @ -No acute intracranial process, cervical spine fracture or facial bone fracture U/S interpreted by me (1pt. min.). @ -None done What testing was considered but not performed or refused? (CT, X-rays, U/S, labs)? Why? @ -None What meds were considered but not given or refused? Why? @ -None Did you discuss the management of the patient with other professionals (professionals i.e. , PA, [employer], lab, RT, psych nurse, social media designer, management rep, teacher, police or patrol park officer, case preparer and liner)? Give summary @ -No Was smoking cessation discussed for >3mins.? @ -No Was critical care preformed (if so, how long)? @ -No Were there social determinants of health that impacted care today? How? (Homelessness, low income, unemployed, alcoholism, drug addiction, transportation, low edu. Level, literacy, decrease access to med. care, intermediate, rehab)? @ -No Was there de-escalation of care discussed even if they declined (Discuss DNR or withdrawal of care, Hospice)? DNR status @ -No What co-morbidities impacted this encounter? (DM, HTN, Smoking, COPD, CAD, Cancer, CVA, ARF, Chemo, Hep., AIDS, mental health diagnosis, sleep apnea, morbid obesity)? @ -None Was patient admitted / discharged? Hospital course, mention meds given and route, prescriptions, significant lab abnormalities, going to OR and other pertinent info. @ -83-year-old female presenting for evaluation post fall. Physical exa mination is conducted, no focal neurological deficits. She is neurovascularly intact. X-ray shows distal comminuted fracture of the radius. Negative CT of the brain, cervical spine, and facial bones. Sugar tong splint is placed and patient is instructed to follow up with orthopedics. [facility] and will call on Saturday. Follow-up with PCP. Report back to ER with any new or worsening symptoms. Discussed return parameters and answered all questions. Patient conveyed verbal understanding and agreed to the plan. I discussed this case in detail with my attending Dr. Saha Undiagnosed new problem with uncertain prognosis? @ -No Drug Therapy requiring intensive monitoring for toxicity (Heparin, Nitro, Insulin, Cardizem)? @ -No Were any procedures done? @ -Sugar tong splint placed Diagnosis/symptom? @ -Radius fracture Acute, or Chronic, or Acute on Chronic? @ -Acute Uncomplicated (without systemic symptoms) or Complicated (systemic symptoms)? @ -Uncomplicated Side effects of treatment? @ -No Exacerbation, Progression, or Severe Exacerbation? @ -No Poses a threat to life or bodily function? How? (Chest pain, [place], [place], pneumonia, PE, COPD, DKA, ARF, appy, cholecystitis, CVA, Diverticulitis, Homicidal, Suici osito, threat to staff... and all critical care pts) @ -No Disposition Clinical Impression: Radius fracture Disposition: HOME SELF-CARE Condition: Good Instructions (If sedation given, give patient instructions): Wrist Fracture in Adults (ED), Head Injury (ED) Additional Instructions: Follow-up with PCP and orthopedics. Report back to ER with any new or worsening symptoms. Take Motrin and Tylenol as needed for pain control. Prescriptions: Acetaminophen-Codeine 300-30mg [Tylenol w/codeine #3] 1 tab PO Q4H PRN 3 Days #18 tablet PRN Reason: Pain Is patient prescribed a controlled substance at d/c from ED?: No Referrals: Kingston Wayne MD [Primary Care Provider] - 1-2 days Storm Newton DO [Doctor of Osteopathic Medicine] - 1-2 days Time of Disposition: 18:30
[2023-08-03 19:04] VITALS: PULSE 70; TEMP 98.5
== END 2023-08-03 19:10 | disposition home or self-care (01) ==
LOC: EC 16:05
DX: S52.571A Other intraarticular fracture of lower end of right radius, initial encounter for closed fracture (principal); E78.5 Hyperlipidemia, unspecified; Z86.73 Personal history of transient ischemic attack (TIA), and cerebral infarction without residual deficits; Z87.891 Personal history of nicotine dependence; Z88.1 Allergy status to other antibiotic agents; Z79.82 Long term (current) use of aspirin; Z79.899 Other long term (current) drug therapy; W01.0XXA Fall on same level from slipping, tripping and stumbling without subsequent striking against object, initial encounter
CPT/HCPCS: 29125; 70450; 70486; 72125; 99284

== ENCOUNTER 2024-09-03 14:44 | Inpatient (IN) | payer MEDICARE, BC ==
--- NOTE | 2024-09-03 15:43 | ED ---
SOB HPI - General Source: patient, RN notes reviewed Mode of arrival: wheelchair Limitations: no limitations <Shanique Willett - Last Filed: 09/03/24 15:43> - General Source: patient, RN notes reviewed <Leydi Fox - Last Filed: 09/03/24 19:14> - General Chief Complaint: Shortness of Breath Stated Complaint: SOB Time Seen by Provider: 09/03/24 15:35 - History of Present Illness Initial Comments: Quick Note: This is an 84-year-old female who presents to the emergency department for shortness of breath. States that 3 weeks ago she developed a cough and shortness of breath. She had gone to a different emergency department was given a prescription for antibiotics and steroids for possible pneumonia. States that since finishing the medications the cough has improved, however she is still very short of breath and incredibly fatigued. Reports pain in her chest and between her shoulder blades in the back. (Shanique Willett) 84-year-old female presenting to the ER for cough x 1 month. States about 3 to 4 weeks ago she developed a cough and nasal congestion. She states over the course of the month she has had progressive shortness of breath and generalized weakness. 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 She was seen by PCP last week where they prescribed steroids and antibiotics for possible pneumonia. She does state that the cough improved mildly but she woke up today very short of breath, fatigued, and with chest pain and pain between shoulder blades. States she has not smoked tobacco in over 50 years. She does have a history of CVA. She is not on blood thinners. Denies heart or lung issues. She does have a history of pneumonia last year. (Leydi Fox) - Related Data Home Medications Medication Instructions Recorded Confirmed Albuterol Inhaler [Ventolin Hfa 2 puff INHALATION RT-Q4H PRN 09/03/24 09/03/24 Inhaler] Citalopram Hydrobromide [CeleXA] 40 mg PO DAILY 09/03/24 09/03/24 lisinopriL [Zestril] 5 mg PO DAILY 09/03/24 09/03/24 Allergies Allergy/AdvReac Type Severity Reaction Status Date / Time ciprofloxacin [From Cipro] Allergy Itching, Verified 09/03/24 17:29 blistered skin Review of Systems ROS Other: All systems not noted in ROS Statement are negative. <Shanique Willett - Last Filed: 09/03/24 15:43> ROS Other: All systems not noted in ROS Statement are negative. <Leydi Fox - Last Filed: 09/03/24 19:14> ROS Statement: Those systems with pertinent positive or pertinent negative responses have been documented in the HPI. Past Medical History Past Medical History: CVA/TIA, Hyperlipidemia Additional Past Medical History / Comment(s): TIA 2013-no residual effects, hx. 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 scherer, sinus problems History of Any Multi-Drug Resistant Organisms: None Reported Past Surgical History: Breast Surgery, Joint Replacement Additional Past Surgical History / Comment(s): SPLEENECTOMY, boo hip Past Anesthesia/Blood Transfusion Reactions: No Reported Reaction Past Psychological History: No Psychological Hx Reported Smoking Status: Former smoker Past Alcohol Use History: None Reported Past Drug Use History: None Reported - Past Family History Mother Family Medical History: No Reported History <Shanique Willett - Last Filed: 09/03/24 15:43> General Exam Limitations: no limitations <Shanique Willett - Last Filed: 09/03/24 15:43> General appearance: alert, in no apparent distress, other Head exam: Present: atraumatic, normocephalic, normal inspection Eye exam: Present: normal appearance, PERRL, EOMI. Absent: scleral icterus, conjunctival injection, periorbital swelling ENT exam: Present: normal exam, mucous membranes moist Respiratory exam: Present: normal lung sounds bilaterally. Absent: respiratory distress, wheezes, rales, rhonchi, stridor Cardiovascular Exam: Present: regular rate, normal rhythm, normal heart sounds. Absent: systolic murmur, diastolic murmur, rubs, gallop, clicks GI/Abdominal exam: Present: soft, normal bowel sounds. Absent: distended, tenderness, guarding, rebound, rigid Neurological exam: Present: alert, oriented X3 Psychiatric exam: Present: normal affect, normal mood Skin exam: Present: warm, dry, intact, normal color. Absent: rash <Leydi Fox - Last Filed: 09/03/24 19:14> - General Exam Comments Initial Comments: Visual Physical Exam Vital signs reviewed General: Well-appearing, nontoxic, no acute distress. Head: Normocephalic, atraumatic Eyes: PERRLA, EOMI ENT: Airway patent Chest: Nonlabored breathing Skin: No visual rash, normal skin tone Neuro: Alert and oriented 3 Musculoskeletal: No gross abnormalities (Shanique Willett) Course Vital Signs 09/03/24 09/03/24 09/03/24 14:53 16:58 17:05 Temperature 98.1 F Pulse Rate 73 86 Respiratory 16 26 H 26 H Rate Blood Pressure 140/90 O2 Sat by Pulse 93 L 92 L Oximetry 09/03/24 09/03/24 18:42 18:45 Temperature 98.1 F Pulse Rate 75 Respiratory 24 Rate Blood Pressure 162/90 O2 Sat by Pulse 89 L 95 Oximetry Medical Decision Making <Shanique Willett - Last Filed: 09/03/24 15:43> - Lab Data Result diagrams: 09/03/24 15:45 09/03/24 15:45 - EKG Data -: EKG Interpreted by Me <Leydi Fox - Last Filed: 09/03/24 19:14> - Medical Decision Making I performed the QuickNote portion of this chart. Signed Shanique Willett PA-C. (Shanique iWllett) Was pt. sent in by a medical professional or institution (GENOVEVA Ferrer, AUTO SERVICE INSTRUCTOR, urgent care, hospital, or [place] health care facility...) When possible be specific @ -No Did you speak to anyone other than the patient for history (EMS, parent, family, police, friend...)? What history was obtained from this source @ -No Did you review nursing and triage notes (agree or disagree)? Why? @ -I reviewed and agree with nursing and triage notes Were old charts reviewed (outside hosp., previous admission, EMS record, old EKG, old radiological studies, urgent care reports/EKG's, [place] health care facility records)? Report findings @ -No old charts were reviewed Differential Diagnosis (chest pain, altered mental status, abdominal pain women, abdominal pain men, vaginal bleeding, weakness, fever, dyspnea, syncope, headache, dizziness, GI bleed, back pain, seizure, CVA, palpatations, mental health, musculoskeletal)? @ -Differential Dyspnea: Coronary syndrome, arrhythmia, tamponade, asthma, COPD, pulmonary embolism, pneumonia, pneumothorax, pulmonary effusion, anaphylaxis, diabetic ketoacidosis, flailed chest, pulmonary contusion, diaphragmatic rupture, anemia, neuromuscular, this is not meant to be an all-inclusive list. EKG interpreted by me (3pts min.). @ -As above X-rays interpreted by me (1pt min.). @ -Chest x-ray reveals no acute process CT interpreted by me (1pt min.). @ -CT angio chest reveals bilateral pulmonary embolisms, no evidence of right heart strain, right lower lobe 7 mm pulmonary nodule, left renal cortical explanation/hemorrhagic cyst U/S interpreted by me (1pt. min.). @ -None done What testing was considered but not performed or refused? (CT, X-rays, U/S, labs)? Why? @ -None What meds were considered but not given or refused? Why? @ -None Did you discuss the management of the patient with other professionals (professionals i.e. , PA, AUTO SERVICE INSTRUCTOR, lab, RT, psych nurse, social security benefits interviewer, pivot maker, teacher, risk officer, insurance case manager)? Give summary @ -I spoke with sound physicians who accepts admission for bilateral pulmonary embolisms Was smoking cessation discussed for >3mins.? @ -No Was critical care preformed (if so, how long)? @ -No Were there social determinants of health that impacted care today? How? (Homelessness, low income, unemployed, alcoholism, drug addiction, transportation, low edu. Level, literacy, decrease access to med. care, skilled nursing, rehab)? @ -No Was there de-escalation of care discussed even if they declined (Discuss DNR or withdrawal of care, Hospice)? DNR status @ -No What co-morbidities impacted this encounter? (DM, HTN, Smoking, COPD, CAD, Cancer, CVA, ARF, Chemo, Hep., AIDS, mental health diagnosis, sleep apnea, morbid obesity)? @ -None Was patient admitted / discharged? Hospital course, mention meds given and route, prescriptions, significant lab abnormalities, going to OR and other pertinent info. @ -Admitted. This is an 84-year-old female presenting to the ER for cough x 1 month with associated shortness of breath. Patient satting 93% on room air, all other vital signs within acceptable limits. No acute distress. Lab work including CBC, CMP, BNP, troponin, D-dimer remarkable for D-dimer of 5.71. CT angio chest was then obtained which revealed bilateral pulmonary embolisms, no evidence of right heart strain. I spoke with sound physicians who accepts admission for bilateral pulmonary embolisms with consultation to vascular services. Patient was started on high intensity heparin. Upon reevaluation, patient's oxygen decreased to 89% on room air and patient was started on 2 L O2 nasal cannula. Patient updated on results, is agreeable to plan. Case was discussed with my ED attending Dr. Watters. Echocardiogram ordered for tomorrow morning. Undiagnosed new problem with uncertain prognosis? @ -No Drug Therapy requiring intensive monitoring for toxicity (Heparin, Nitro, Insulin, Cardizem)? @ -Yes, heparin Were any procedures done? @ -No Diagnosis/symptom? @ -Bilateral pulmonary embolisms Acute, or Chronic, or Acute on Chronic? @ -Acute Uncomplicated (without systemic symptoms) or Complicated (systemic symptoms)? @ -Complicated Side effects of treatment? @ -No Exacerbation, Progression, or Severe Exacerbation? @ -No Poses a threat to life or bodily function? How? (Chest pain, [place], [place], pneumonia, PE, COPD, DKA, ARF, appy, cholecystitis, CVA, Diverticulitis, Homicidal, Suicidal, threat to staff... and all critical care pts) @ -Yes (Leydi Fox) - Lab Data Lab Results 09/03/24 09/03/24 09/03/24 Range/Units 15:45 15:45 15:45 WBC 11.3 H (3.8-10.6) k/uL RBC 4.84 (3.80-5.40) m/uL Hgb 15.7 (11.4-16.0) gm/dL Hct 50.6 H (34.0-46.0) % MCV 104.5 H (80.0-100.0) fL MCH 32.5 (25.0-35.0) pg MCHC 31.1 (31.0-37.0) g/dL RDW 12.8 (11.5-15.5) % Plt Count 286 (150-450) k/uL MPV 7.3 Neutrophils % 52 % Lymphocytes % 34 % Monocytes % 8 % Eosinophils % 3 % Basophils % 1 % Neutrophils # 5.9 (1.3-7.7) k/uL Lymphocytes # 3.8 (1.0-4.8) k/uL Monocytes # 0.9 (0-1.0) k/uL Eosinophils # 0.3 (0-0.7) k/uL Basophils # 0.1 (0-0.2) k/uL Hypochromasia Slight Macrocytosis Slight PT 10.3 (10.0-12.5) sec INR 0.9 (<1.2) APTT 23.0 (22.0-30.0) sec D-Dimer 5.71 H (<0.60) mg/L FEU Sodium 139 (137-145) mmol/L Potassium 4.5 (3.5-5.1) mmol/L Chloride 108 H (98-107) mmol/L Carbon Dioxide 25 (22-30) mmol/L Anion Gap 6 mmol/L BUN 18 H (7-17) mg/dL Creatinine 0.78 (0.52-1.04) mg/dL Est GFR (CKD-EPI)AfAm 81 (>60 ml/min/1.73 sqM) Est GFR (CKD-EPI)NonAf 70 (>60 ml/min/1.73 sqM) Glucose 71 L (74-99) mg/dL Plasma Lactic Acid Isidoro (0.7-2.0) mmol/L Calcium 9.2 (8.4-10.2) mg/dL Magnesium 2.2 (1.6-2.3) mg/dL Total Bilirubin 1.2 (0.2-1.3) mg/dL AST 40 H (14-36) U/L ALT 19 (4-34) U/L Alkaline Phosphatase 128 H (38-126) U/L Troponin I (0.000-0.034) ng/mL NT-Pro-B Natriuret Pep 751 pg/mL Total Protein 7.4 (6.3-8.2) g/dL Albumin 4.2 (3.5-5.0) g/dL Influenza Type A (PCR) (Not Detectd) Influenza Type B (PCR) (Not Detectd) RSV (PCR) (Not Detectd) SARS-CoV-2 (PCR) (Not Detectd) 09/03/24 09/03/24 09/03/24 Range/Units 15:45 15:45 15:45 WBC (3.8-10.6) k/uL RBC (3.80-5.40) m/uL Hgb (11.4-16.0) gm/dL Hct (34.0-46.0) % MCV (80.0-100.0) fL MCH (25.0-35.0) pg MCHC (31.0-37.0) g/dL RDW (11.5-15.5) % Plt Count (150-450) k/uL MPV Neutrophils % % Lymphocytes % % Monocytes % % Eosinophils % % Basophils % % Neutrophils # (1.3-7.7) k/uL Lymphocytes # (1.0-4.8) k/uL Monocytes # (0-1.0) k/uL Eosinophils # (0-0.7) k/uL Basophils # (0-0.2) k/uL Hypochromasia Macrocytosis PT (10.0-12.5) sec INR (<1.2) APTT (22.0-30.0) sec D-Dimer (<0.60) mg/L FEU Sodium (137-145) mmol/L Potassium (3.5-5.1) mmol/L Chloride (98-107) mmol/L Carbon Dioxide (22-30) mmol/L Anion Gap mmol/L BUN (7-17) mg/dL Creatinine (0.52-1.04) mg/dL Est GFR (CKD-EPI)AfAm (>60 ml/min/1.73 sqM) Est GFR (CKD-EPI)NonAf (>60 ml/min/1.73 sqM) Glucose (74-99) mg/dL Plasma Lactic Acid Isidoro 1.5 (0.7-2.0) mmol/L Calcium (8.4-10.2) mg/dL Magnesium (1.6-2.3) mg/dL Total Bilirubin (0.2-1.3) mg/dL AST (14-36) U/L ALT (4-34) U/L Alkaline Phosphatase (38-126) U/L Troponin I 0.018 (0.000-0.034) ng/mL NT-Pro-B Natriuret Pep pg/mL Total Protein (6.3-8.2) g/dL Albumin (3.5-5.0) g/dL Influenza Type A (PCR) Not Detected (Not Detectd) Influenza Type B (PCR) Not Detected (Not Detectd) RSV (PCR) Not Detected (Not Detectd) SARS-CoV-2 (PCR) Not Detected (Not Detectd) - EKG Data EKG Comments: EKG reveals normal sinus rhythm with left axis deviation with no acute ST changes. Ventricular rate 79 bpm, [place] interval 144, QRS duration 88, QT/QTc 388/423 (Leydi Fox) Disposition <Shanique Willett - Last Filed: 09/03/24 15:43> Time of Disposition: 19:02 <Leydi Fox - Last Filed: 09/03/24 19:14> Clinical Impression: Pulmonary embolism Disposition: ADMITTED IP TO THIS HOSP Referrals: Kingston Wayne MD [Primary Care Provider] - 1-2 days
[2024-09-03 16:49] LABS: Basophils # (A) 0.1 k/uL (0-0.2); Basophils % (A) 1 %; Eosinophils # (A) 0.3 k/uL (0-0.7); Eosinophils % (A) 3 %; HCT 50.6 % (34.0-46.0); HGB 15.7 gm/dL (11.4-16.0); Hypochromasia Slight; Lymphocytes # (A) 3.8 k/uL (1.0-4.8); Lymphocytes % (A) 34 %; MCH 32.5 pg (25.0-35.0); MCHC 31.1 g/dL (31.0-37.0); MCV 104.5 fL (80.0-100.0); Macrocytosis Slight; Mean Platelet Volume 7.3; Monocytes # (A) 0.9 k/uL (0-1.0); Monocytes % (A) 8 %; Neutrophils # (A) 5.9 k/uL (1.3-7.7); Neutrophils % (A) 52 %; Platelet Count 286 k/uL (150-450); RBC 4.84 m/uL (3.80-5.40); RDW 12.8 % (11.5-15.5); WBC 11.3 k/uL (3.8-10.6)
[2024-09-03 17:09] LABS: ALT 19 U/L (4-34); African American GFR (CKD) 81 (>60 ml/min/1.73 sqM); Albumin 4.2 g/dL (3.5-5.0); Anion Gap 6 mmol/L; Blood Urea Nitrogen 18 mg/dL (7-17); Calcium 9.2 mg/dL (8.4-10.2); Carbon Dioxide 25 mmol/L (22-30); Chloride 108 mmol/L (98-107); Glucose 71 mg/dL (74-99); Magnesium 2.2 mg/dL (1.6-2.3); Non-African American GFR(CKD) 70 (>60 ml/min/1.73 sqM); Sodium 139 mmol/L (137-145); Total Bilirubin 1.2 mg/dL (0.2-1.3); Total Protein 7.4 g/dL (6.3-8.2)
[2024-09-03 17:15] LABS: Potassium 4.5 mmol/L (3.5-5.1)
[2024-09-03 17:16] LABS: AST 40 U/L (14-36); Alkaline Phosphatase 128 U/L (38-126)
[2024-09-03 17:17] LABS: NT-Pro-B-Type Natriuretic Pept 751 pg/mL
--- NOTE | 2024-09-03 17:25 | XR ---
EXAMINATION TYPE: XR chest 2V DATE OF EXAM: 09/03/2024 COMPARISON: None INDICATION: 09/03/2024 TECHNIQUE: Frontal and lateral views of the chest are obtained. FINDINGS: The heart size is normal. The pulmonary vasculature is normal. The lungs are clear. There is a focal eventration of the posterior right diaphragm. IMPRESSION: 1. No acute pulmonary process. [facility], Workstation: [facility], 09/03/2024 5:23 PM
[2024-09-03 17:31] LABS: INR 0.9 (<1.2); Prothrombin Time 10.3 sec (10.0-12.5)
--- NOTE | 2024-09-03 18:43 | CT ---
EXAMINATION TYPE: CT angio chest CT DLP: 346.6 mGycm, Automated exposure control for dose reduction was used. DATE OF EXAM: 09/03/2024 6:33 PM COMPARISON: Chest radiograph same day CLINICAL INDICATION: Female, 84 years old with history of SOB, elevated D-dimer, r/o PE; SOB, Positiv e dimer TECHNIQUE/CONTRAST: CTA scan of the thorax is performed with IV Contrast, patient injected with 50 cc mL of Isovue 370, M IP images are created and reviewed these are created on a separate workstation.. FINDINGS: Pulmonary Artery: Filling defects are seen throughout the pulmonary arterial vasculature including th e left upper lobe left lower lobe right upper lobe right lower lobe and right middle lobe only arteri al vasculature including the lumbar pulmonary arteries extending segmental and subsegmental branches. Pulmonary trunk is within normal limits for size measuring 33 mm. Lungs/Pleura: No evidence of focal consolidation, pleural effusion or pneumothorax. Scattered reticul ar opacities throughout the lungs predominantly in lung bases. Right lower lobe pulmonary nodule olayinka uring 7 mm Airway: Large airways are patent. Heart: The heart is mildly enlarged for size. Coronary artery atherosclerosis. Mitral valve and no ca lcifications present. Vasculature: No evidence of aortic aneurysm. Mediastinum: No gross evidence of adenopathy. Musculoskeletal: No acute osseous abnormalities Soft Tissues/lymph nodes: Unremarkable. Lower neck: No significant findings. Upper Abdomen: Proteinaceous/hemorrhagic cyst in the left renal cortex measuring up to 12 mm. IMPRESSION: 1. Bilateral pulmonary emboli seen throughout the lungs. No evidence of right heart strain. 2. Right lower lobe 7 mm pulmonary nodule short-term follow-up in 3-6 months recommended to ensure [address] ability. Alternatively consider pet/CT. Correlate with history of malignancy. 3. Left renal cortical explanation/hemorrhagic cyst. 4. Mild cardiomegaly. Findings communicated to Dr. Leydi Fox, PAC on 09/03/2024 6:[address] Augustin Bal. [facility], , 09/03/2024 6:41 PM
[2024-09-03] MEDS ORDERED: HEPARIN SODIUM 1,000 UN/ML (10ML VL) IV PRN (18:54)
[2024-09-03] MEDS ORDERED: MORPHINE SULFATE 4 MG/ML SYRINGE IV PRN (18:56)
[2024-09-03] MEDS ORDERED: NALOXONE 0.4 MG/ML 1 ML VIAL IV PRN (18:56)
[2024-09-03] MEDS: HEPARIN SOD,PORK IN 0.45% NACL 25,000 UNIT in 0.45% NACL 1 250ML.BAG IV SCH (19:35)
[2024-09-03] MEDS: HEPARIN SODIUM 1,000 UN/ML (10ML VL) IV ONE (19:36)
[2024-09-03] MEDS: ACETAMINOPHEN TAB 325 MG TAB PO PRN (20:24)
--- NOTE | 2024-09-03 22:26 | P.HPIM ---
History of Present Illness H&P Date: 09/03/24 Chief Complaint: SOB Patient is a 80-year-old female with hypertension, hyperlipidemia, history of CVA (2013) who came in for shortness of breath. Patient reported that she has been having a cough for the last month that is productive with scant white phlegm. She also notices an associated sharp pain that radiates to the back between her shoulders, nausea and vomiting, sweats. A week and a half ago she sought care at urgent care and was given antibiotics and steroids. However after finishing the course of the antibiotics and steroids her symptoms did not improve which led her to seek care to our ED. She denies fever, hemoptysis, chest pain, palpitations, calf tenderness, focal weakness, vision changes, facial asymmetry, or loss of consciousness. In the ED, CT angio showed bilateral pulmonary embolisms and right 7 mm pulmonary nodule and cardiomegaly. EKG showed normal sinus rhythm with a rate of [address]-T changes QTc normal at 423 MS. WBC elevated at 11.3, MCV 104, D-dimer elevated at 5.71, troponin 0.018 Review of systems: Pertinent positives and negatives as discussed in HPI, a complete review of systems was performed and all other systems are negative. Social history: Tobacco: Former smoker. Smoked 4 packs a day for 13 years. Quit 50 years ago Alcohol: Denies alcohol intake Recreational drugs: No illicit drug use Travel: No recent travel Physical examination: Vital signs reviewed General: non toxic, no distress, appears at stated age, Derm: no unusual rashes/lesions, warm Head: atraumatic, normocephalic, symmetric Eyes: EOMI, anicteric sclera, pupils equal round reactive to light ENT: Nose and ears atraumatic Neck: No lesions or masses grossly, trachea midline, supple Mouth: no lip lesion, mucus membranes moist Cardiovascular: S1S2 reg, no murmur Lungs: Diminished breath sounds on left lung de la cruz worse than right, no rhonchi, no rales, no accessory muscle use Abdominal: soft, nondistended, nontender to palpation, no guarding Ext: muscle strength 5 out of 5 in all 4 upper and lower extremities grossly, no gross muscle atrophy, no contractures, positive dorsalis pedis pulse bilateral, no edema Neuro: CN II-XI grossly intact, no gross focal neuro deficits Psych: Alert and oriented x 3, appropriate affect and mood Assessment/Plan: #. Unprovoked bilateral pulmonary embolism D-dimer elevated at 5.71. Troponin negative at 0.018. CT angiography shows bilateral pulmonary embolism. -Cardiac monitoring -Heparin 80 units per kilogram IV drip -Monitor PTT -Echocardiogram tomorrow -Consult vascular surgery #. Leukocytosis #. Macrocytosis WBC elevated at 11.3. MCV ekevated at 104. Hgb normal at 15.7. Patient afebrile and stable -CBC at AM Chronic conditions: #. Hypertension: Lisinopril 50 mg p.o. OD #. Hyperlipidemia #. Depression -Atorvastatin 40 mg p.o. at bedtime -Lipid profile at a.m. -Resume home medications once reconciled DVT prophylaxis: Heparin IV drip for pe CODE STATUS: Full Discussed with: Patient Anticipated discharge place: Home Past Medical History Past Medical History: CVA/TIA, Hyperlipidemia Additional Past Medical History / Comment(s): TIA 2013-no residual effects, hx. 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-sees kidney drKirsty yearly, sinus problems History of Any Multi-Drug Resistant Organisms: None Reported Past Surgical History: Breast Surgery, Joint Replacement Additional Past Surgical History / Comment(s): SPLEENECTOMY, boo hip Past Anesthesia/Blood Transfusion Reactions: No Reported Reaction Past Psychological History: No Psychological Hx Reported Smoking Status: Former smoker Past Alcohol Use History: None Reported Past Drug Use History: None Reported - Past Family History Mother Family Medical History: No Reported History Medications and Allergies Home Medications Medication Instructions Recorded Confirmed Type Albuterol Inhaler [Ventolin Hfa 2 puff INHALATION RT-Q4H PRN 09/03/24 09/03/24 History Inhaler] Citalopram Hydrobromide [CeleXA] 40 mg PO DAILY 09/03/24 09/03/24 History lisinopriL [Zestril] 5 mg PO DAILY 09/03/24 09/03/24 History Allergies Allergy/AdvReac Type Severity Reaction Status Date / Time ciprofloxacin [From Cipro] Allergy Itching, Verified 09/03/24 17:29 blistered skin Physical Exam Vitals: Vital Signs Temp Pulse Resp BP Pulse Ox 09/03/24 19:38 70 16 148/68 96 09/03/24 18:45 98.1 F 75 24 162/90 95 09/03/24 18:42 89 L 09/03/24 17:05 86 26 H 92 L 09/03/24 16:58 26 H 09/03/24 14:53 98.1 F 73 16 140/90 93 L Intake and Output 09/03/24 09/03/24 09/03/24 06:59 14:59 22:59 Other: Weight 86.183 kg Results CBC & Chem 7: 09/03/24 15:45 09/03/24 15:45 Labs: Abnormal Lab Results - Last 24 Hours (Table) 09/03/24 09/03/24 09/03/24 Range/Units 15:45 15:45 15:45 WBC 11.3 H (3.8-10.6) k/uL Hct 50.6 H (34.0-46.0) % MCV 104.5 H (80.0-100.0) fL D-Dimer 5.71 H (<0.60) mg/L FEU Chloride 108 H (98-107) mmol/L BUN 18 H (7-17) mg/dL Glucose 71 L (74-99) mg/dL AST 40 H (14-36) U/L Alkaline Phosphatase 128 H (38-126) U/L
[2024-09-03] MEDS: PANTOPRAZOLE 40 MG TABLET PO SCH (23:26)
[2024-09-03] MEDS ORDERED: ALBUTEROL NEBULIZED 2.5 MG/3 ML INHALATION PRN (23:57)
--- NOTE | 2024-09-04 08:07 | US ---
EXAMINATION TYPE: US venous doppler duplex LE BI DATE OF EXAM: 09/04/2024 7:27 AM COMPARISON: NONE CLINICAL INDICATION: Female, 84 years old with history of B/L PE, rule out DVT; new PE's, no leg pain TECHNIQUE: The lower extremity deep venous system is examined utilizing real time linear array sonog tami with graded compression, color doppler sonography, and spectral doppler. SIDE PERFORMED: Bilateral FINDINGS: VESSELS IMAGED: Common Femoral Vein Deep Femoral Vein Greater Saphenous Vein * Femoral Vein Popliteal Vein Small Saphenous Vein * Proximal Calf Veins (* superficial vessels) Right Leg: Negative for DVT Left Leg: Negative for DVT Grayscale, color doppler, spectral doppler imaging performed of the deep veins of the lower extremiti es. IMPRESSION: 1. No ultrasound evidence for deep venous thrombosis of either lower extremity. [facility], , 09/04/2024 8:05 AM
[2024-09-04] MEDS: CITALOPRAM HYDROBROMIDE 20 MG TAB PO SCH (08:10)
[2024-09-04] MEDS: lisinopriL 5 MG TAB PO SCH (08:10)
[2024-09-04 09:20] LABS: Basophils # (A) 0.1 k/uL (0-0.2); Basophils % (A) 1 %; Eosinophils # (A) 0.4 k/uL (0-0.7); Eosinophils % (A) 4 %; HCT 45.9 % (34.0-46.0); HGB 15.3 gm/dL (11.4-16.0); Lymphocytes # (A) 3.5 k/uL (1.0-4.8); Lymphocytes % (A) 33 %; MCHC 33.4 g/dL (31.0-37.0); MCV 101.8 fL (80.0-100.0); Macrocytosis Slight; Mean Platelet Volume 8.3; Monocytes # (A) 0.8 k/uL (0-1.0); Monocytes % (A) 8 %; Neutrophils # (A) 5.7 k/uL (1.3-7.7); Neutrophils % (A) 53 %; Platelet Count 283 k/uL (150-450); RBC 4.51 m/uL (3.80-5.40); RDW 13.1 % (11.5-15.5); WBC 10.7 k/uL (3.8-10.6)
--- NOTE | 2024-09-04 11:09 | P.GSCN ---
History of Present Illness Consult date: 09/04/24 Reason for Consult: Bilateral Pulmonary embolism Requesting physician: Leydi Fox History of present illness: This a pleasant 84-year-old female with a past medical history including hyperlipidemia and TIA who presented to the emergency department with complaints of shortness of breath. She states that she has had a cough and shortness of breath for last 3 weeks duration cough has improved but shortness of breath has continued. States that she has had shortness of breath and been fatigued for the last 1 to 2 years. She is seeing her PCP who had recommended patient to follow-up with pulmonology. She came in for further evaluation was noted to have elevated D-dimer. She had a chest CTA with findings of bilateral pulmonary emboli without any evidence of right heart strain. Troponins were negative x 3. Vascular surgery was consulted for bilateral PE. She is currently on a heparin drip. Oxygen saturation 94 to 95% on 3 L nasal cannula. She denies any requirement of O2 at home. States that for the last 1 to 2 years she has had increasing shortness of breath and fatigue and no energy and has actually hired people to assist her with cleaning and maintaining her yard work. She currently denies any chest pain, fevers or chills. No history of pulmonary embolism in the past. No recent surgeries, injuries, or travel. Review of Systems A 14 point review systems was completed all pertinent positives and negatives as stated in the HPI. Past Medical History Past Medical History: CVA/TIA, Hyperlipidemia Additional Past Medical History / Comment(s): TIA 2013-no residual effects, hx. 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, sinus problems History of Any Multi-Drug Resistant Organisms: None Reported Past Surgical History: Breast Surgery, Joint Replacement Additional Past Surgical History / Comment(s): SPLEENECTOMY, boo hip Past Anesthesia/Blood Transfusion Reactions: No Reported Reaction Past Psychological History: No Psychological Hx Reported Smoking Status: Former smoker Past Alcohol Use History: None Reported Past Drug Use History: None Reported - Past Family History Mother Family Medical History: No Reported History Medications and Allergies Home Medications Medication Instructions Recorded Confirmed Type Albuterol Inhaler [Ventolin Hfa 2 puff INHALATION RT-Q4H PRN 09/03/24 09/03/24 History Inhaler] Citalopram Hydrobromide [CeleXA] 40 mg PO DAILY 09/03/24 09/03/24 History lisinopriL [Zestril] 5 mg PO DAILY 09/03/24 09/03/24 History Allergies Allergy/AdvReac Type Severity Reaction Status Date / Time ciprofloxacin [From Cipro] Allergy Itching, Verified 09/03/24 17:29 blistered skin Surgical - Exam Vital Signs Temp Pulse Resp BP Pulse Ox 98.1 F 73 16 140/90 93 L 09/03/24 14:53 09/03/24 14:53 09/03/24 14:53 09/03/24 14:53 09/03/24 14:53 General appearance: The patient is alert, oriented, appears in no acute distress. HET: Head is normocephalic and atraumatic. Pupils are equal and reactive. Neck: Supple. Heart: Regular. Lungs: Equal expansion, normal respiratory effort. Abdomen: Soft, nontender, nondistended. Extremities: Normal skin color and turgor. Neurological: No focal deficits. Strength and sensation are grossly intact. Results - Labs 09/04/24 08:47 09/03/24 15:45 Abnormal Lab Results - Last 24 Hours (Table) 09/03/24 09/03/24 09/03/24 Range/Units 15:45 15:45 15:45 WBC 11.3 H (3.8-10.6) k/uL Hct 50.6 H (34.0-46.0) % MCV 104.5 H (80.0-100.0) fL APTT (22.0-30.0) sec D-Dimer 5.71 H (<0.60) mg/L FEU Chloride 108 H (98-107) mmol/L BUN 18 H (7-17) mg/dL Glucose 71 L (74-99) mg/dL AST 40 H (14-36) U/L Alkaline Phosphatase 128 H (38-126) U/L 09/04/24 Range/Units 00:50 WBC (3.8-10.6) k/uL Hct (34.0-46.0) % MCV (80.0-100.0) fL APTT 134.0 H* (22.0-30.0) sec D-Dimer (<0.60) mg/L FEU Chloride (98-107) mmol/L BUN (7-17) mg/dL Glucose (74-99) mg/dL AST (14-36) U/L Alkaline Phosphatase (38-126) U/L Diabetes panel 09/03/24 Range/Units 15:45 Sodium 139 (137-145) mmol/L Potassium 4.5 (3.5-5.1) mmol/L Chloride 108 H (98-107) mmol/L Carbon Dioxide 25 (22-30) mmol/L BUN 18 H (7-17) mg/dL Creatinine 0.78 (0.52-1.04) mg/dL Glucose 71 L (74-99) mg/dL Calcium 9.2 (8.4-10.2) mg/dL AST 40 H (14-36) U/L ALT 19 (4-34) U/L Alkaline Phosphatase 128 H (38-126) U/L Total Protein 7.4 (6.3-8.2) g/dL Albumin 4.2 (3.5-5.0) g/dL Calcium panel 09/03/24 Range/Units 15:45 Calcium 9.2 (8.4-10.2) mg/dL Albumin 4.2 (3.5-5.0) g/dL Pituitary panel 09/03/24 Range/Units 15:45 Sodium 139 (137-145) mmol/L Potassium 4.5 (3.5-5.1) mmol/L Chloride 108 H (98-107) mmol/L Carbon Dioxide 25 (22-30) mmol/L BUN 18 H (7-17) mg/dL Creatinine 0.78 (0.52-1.04) mg/dL Glucose 71 L (74-99) mg/dL Calcium 9.2 (8.4-10.2) mg/dL Adrenal panel 09/03/24 Range/Units 15:45 Sodium 139 (137-145) mmol/L Potassium 4.5 (3.5-5.1) mmol/L Chloride 108 H (98-107) mmol/L Carbon Dioxide 25 (22-30) mmol/L BUN 18 H (7-17) mg/dL Creatinine 0.78 (0.52-1.04) mg/dL Glucose 71 L (74-99) mg/dL Calcium 9.2 (8.4-10.2) mg/dL Total Bilirubin 1.2 (0.2-1.3) mg/dL AST 40 H (14-36) U/L ALT 19 (4-34) U/L Alkaline Phosphatase 128 H (38-126) U/L Total Protein 7.4 (6.3-8.2) g/dL Albumin 4.2 (3.5-5.0) g/dL - Imaging Comments: Chest x-ray reports no acute pulmonary process Chest CTA reports bilateral pulmonary emboli seen throughout the lungs. No evidence of right heart strain. Right lower lobe 7 mm pulmonary nodule short- term follow-up in 3 to 6 months recommended to ensure stability. Alternatively consider PET/CT. Correlate with history of malignancy. Left renal cortical explanation/hemorrhagic cyst. Mild cardiomegaly Lower extremity venous duplex negative for DVT bilaterally Assessment and Plan Assessment: 1. Bilateral pulmonary emboli without evidence of right heart strain 2. Chronic shortness of breath 3. Pulmonary nodule Plan: 1. There is no indication for any vascular surgical intervention 2. May transition to oral anticoagulation of your choice. Recommend at least 6 months duration 3. Consult to pulmonology for chronic shortness of breath and pulmonary nodule noted on CTA 4. Venous duplex ordered and reviewed 5. Rest of medical management per primary medical team Thank you for this consultation, we will sign off at this time. Please do not h esitate to call us back if further needed. The impression and plan of care has been dictated as directed. I performed a history and examination of this patient, discussed the same with the dictator. I agree with the dictator's note ,documented as a scribe. Any additional findings or plans will be noted.
--- NOTE | 2024-09-04 14:01 | P.PN ---
Subjective Progress Note Date: 09/04/24 No new complaints. Pending pulmonology eval. Vascular sx evaluated, no need for EKOS. Gen: In NAD, non-toxic HEENT: normocephalic, atraumatic, hearing acuity is intant, mucous membranes moist CVS: perfusing all extremities well, no pitting edema, Respiratory: symmetric chest expansion, no accessory muscle use, GI: soft, NTTP, ND, : no suprapubic tenderness, no CVA tenderness MSK/Derm: no rashes, cyanosis Neuro: CN II-XII intact, no motor weakness, Psych: cooperative, euthymic mood, judgment and insight is intact Hospital course: Patient is a 80-year-old female with hypertension, hyperlipidemia, history of CVA (2013) who came in for shortness of breath. In the ED, CT angio showed bilateral pulmonary embolisms and right 7 mm pulmonary nodule and cardiomegaly. EKG showed normal sinus rhythm with a rate of [address]-T changes QTc normal at 423 MS. WBC elevated at 11.3, MCV 104, D-dimer elevated at 5.71, troponin 0.018 Assessment/Plan: #. Unprovoked bilateral pulmonary embolism #. Pulmonary nodule, 7 mm D-dimer elevated at 5.71. Troponin negative at 0.018. CT angiography shows bilateral pulmonary embolism. -Cardiac monitoring -Heparin 80 units per kilogram IV drip -Monitor PTT -Echocardiogram pending -Vascular surgery consult, reviewed documentation, appreciate their rec ommendations -Pulmonology consulted, pending #. Leukocytosis #. Macrocytosis WBC elevated at 11.3. MCV ekevated at 104. Hgb normal at 15.7. Patient afebrile and stable -CBC at AM Chronic conditions: #. Hypertension: Lisinopril 50 mg p.o. OD #. Hyperlipidemia #. Depression -Atorvastatin 40 mg p.o. at bedtime -Lipid profile at a.m. -Resume home medications once reconciled DVT prophylaxis: Heparin IV drip for pe CODE STATUS: Full Discussed with: Patient Anticipated discharge place: Home Objective - Vital Signs Vital signs: Vital Signs Temp 97.6 F 09/04/24 06:30 Pulse 86 09/04/24 13:00 Resp 16 09/04/24 13:00 BP 130/90 09/04/24 13:00 Pulse Ox 98 09/04/24 13:00 FiO2 Intake & Output 09/03/24 09/04/24 09/04/24 18:59 06:59 18:59 Intake Total 94.888 116.989 Balance 94.888 116.989 Weight 86.183 kg Intake: Intake, IV Titration 94.888 116.989 Amount Heparin Sod,Pork in 0.45% 94.888 116.989 NaCl 25,000 unit In 0.45 % NaCl 1 250ml.bag @ 18 UNITS/KG/HR 15.513 mls/hr IV .Q16H7M [facility] Rx#: [id number] - Labs CBC & Chem 7: 09/04/24 08:47 09/03/24 15:45 Labs: Abnormal Lab Results - Last 24 Hours (Table) 09/03/24 09/03/24 09/03/24 Range/Units 15:45 15:45 15:45 WBC 11.3 H (3.8-10.6) k/uL Hct 50.6 H (34.0-46.0) % MCV 104.5 H (80.0-100.0) fL APTT (22.0-30.0) sec D-Dimer 5.71 H (<0.60) mg/L FEU Chloride 108 H (98-107) mmol/L BUN 18 H (7-17) mg/dL Glucose 71 L (74-99) mg/dL AST 40 H (14-36) U/L Alkaline Phosphatase 128 H (38-126) U/L 09/04/24 09/04/24 09/04/24 Range/Units 00:50 08:47 08:47 WBC 10.7 H (3.8-10.6) k/uL Hct (34.0-46.0) % MCV 101.8 H (80.0-100.0) fL APTT 134.0 H* 104.6 H* (22.0-30.0) sec D-Dimer (<0.60) mg/L FEU Chloride (98-107) mmol/L BUN (7-17) mg/dL Glucose (74-99) mg/dL AST (14-36) U/L Alkaline Phosphatase (38-126) U/L
--- NOTE | 2024-09-04 14:15 | P.CNPUL ---
History of Present Illness Consult date: 09/04/24 Reason for consult: pulmonary embolism History of present illness: 84-year-old female patient being seen in the emergency department for acute on top of chronic shortness of breath. The patient came into the ED and the patient was found to have an elevated D-dimer of 5.7. Based on that, the patient was given a CTA of the chest and the patient was diagnosed having bilateral pulmonary embolism without evidence of any RV strain pattern. Another 7 mm pulmonary nodule was seen in the right lower lobe that needs to be further followed up. There was also a left renal cortical cyst and mild cardiomegaly. Doppler of the lower extremities were essentially negative. The patient is currently no oxygen and she is on room air. Cardiac rhythm is sinus. The troponins were negative and the proBNP level was at 751. The patient is currently on IV heparin. The viral screen has been negative. No recent surgical interventions. She claims that she is quite active and she does not lead a sedentary lifestyle. 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 Hemoglobin is at 15.3, white cell count of 10.7, platelet count is 283. No previous history of DVT or pulmonary embolism. No previous personal or family history of clots. No history of any malignancy. Past Medical History Past Medical History: CVA/TIA, Hyperlipidemia Additional Past Medical History / Comment(s): TIA 2013-no residual effects, hx. 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, sinus problems History of Any Multi-Drug Resistant Organisms: None Reported Past Surgical History: Breast Surgery (Benign lesion), Joint Replacement Additional Past Surgical History / Comment(s): SPLEENECTOMY, boo hip replacement , colectomy/splenectomy in 2017 for diverticular disease Past Anesthesia/Blood Transfusion Reactions: No Reported Reaction Past Psychological History: No Psychological Hx Reported Smoking Status: Former smoker Past Alcohol Use History: None Reported Past Drug Use History: None Reported - Past Family History Mother Family Medical History: No Reported History Medications and Allergies Home Medications Medication Instructions Recorded Confirmed Type Albuterol Inhaler [Ventolin Hfa 2 puff INHALATION RT-Q4H PRN 09/03/24 09/03/24 History Inhaler] Citalopram Hydrobromide [CeleXA] 40 mg PO DAILY 09/03/24 09/03/24 History lisinopriL [Zestril] 5 mg PO DAILY 09/03/24 09/03/24 History Allergies Allergy/AdvReac Type Severity Reaction Status Date / Time ciprofloxacin [From Cipro] Allergy Itching, Verified 09/03/24 17:29 blistered skin Physical Exam Vitals: Vital Signs Temp Pulse Resp BP Pulse Ox 09/04/24 11:49 75 20 131/92 96 09/04/24 11:00 80 16 135/90 98 09/04/24 09:50 76 16 135/92 97 09/04/24 08:00 74 20 135/92 94 L 09/04/24 06:30 97.6 F 79 16 116/70 99 09/04/24 06:29 72 23 135/92 97 09/04/24 02:36 79 11 L 154/97 97 09/04/24 00:48 67 20 145/98 95 09/03/24 22:00 80 18 129/79 95 09/03/24 21:33 85 21 129/79 94 L 09/03/24 19:38 70 16 148/68 96 09/03/24 18:45 98.1 F 75 24 162/90 95 09/03/24 18:42 89 L 09/03/24 17:05 86 26 H 92 L 09/03/24 16:58 26 H 09/03/24 14:53 98.1 F 73 16 140/90 93 L Intake and Output 09/03/24 09/04/24 09/04/24 22:59 06:59 14:59 Intake Total 94.888 116.989 Balance 94.888 116.989 Intake: Intake, IV Titration 94.888 116.989 Amount Heparin Sod,Pork in 0.45% 94.888 116.989 NaCl 25,000 unit In 0.45 % NaCl 1 250ml.bag @ 18 UNITS/KG/HR 15.513 mls/hr IV .Q16H7M [facility] Rx#: [id number] The patient appeared well nourished and normally developed. Vital signs as documented. Head exam is unremarkable. No scleral icterus or corneal arcus noted. Neck is without jugular venous distension, thyromegaly, or carotid bruits. Carotid upstrokes are brisk bilaterally. Lungs are clear to auscultation and percussion. Cardiac exam reveals the PMI to be normally sized and situated. Rhythm is regular. First and second heart sounds normal. No murmurs, rubs or gallops. Abdominal exam reveals normal bowel sounds, no masses, no organomegaly and no aortic enlargement. Extremities are nonedematous and both femoral and pedal pulses are normal. Examination of the skin revealed no evidence of significant rashes, suspicious appearing nevi or other concerning lesions. Neurologically, the patient is awake and alert and the patient does not have any focal neurological deficit. Cranial nerves are essentially intact. Results - Laboratory Findings CBC and BMP: 09/04/24 08:47 09/03/24 15:45 PT/INR, D-dimer PT 10.3 sec (10.0-12.5) 09/03/24 15:45 INR 0.9 (<1.2) 09/03/24 15:45 D-Dimer 5.71 mg/L FEU (<0.60) H 09/03/24 15:45 Abnormal lab findings: Abnormal Labs 09/03/24 09/03/24 09/03/24 15:45 15:45 15:45 WBC 11.3 H Hct 50.6 H MCV 104.5 H APTT D-Dimer 5.71 H Chloride 108 H BUN 18 H Glucose 71 L AST 40 H Alkaline Phosphatase 128 H 09/04/24 09/04/24 09/04/24 00:50 08:47 08:47 WBC 10.7 H Hct MCV 101.8 H APTT 134.0 H* 104.6 H* D-Dimer Chloride BUN Glucose AST Alkaline Phosphatase - Diagnostic Findings CT scan - chest: image reviewed Assessment and Plan Plan: Acute bilateral unprovoked pulmonary embolism without any RV strain or hemodynamic instability. The patient's cardiac enzymes are negative. She is currently on room air oxygen and a Doppler of the lower extremities are negative Acute on chronic shortness of breath secondary to above 7 mm right lower lobe pulmonary nodule that needs to be followed up on an outpatient basis. No clear indication for malignancy. Previous history of CVA without any residual deficits Previous history of perforated diverticulosis requiring surgical resection of the bowel and splenectomy Previous history of bilateral hip replacements, no recent orthopedic intervention. Hypertension maintained on Zestril in outpatient basis Plan This is an unprovoked pulmonary embolism. The patient is currently on IV heparin and the patient accordingly will be transition to anticoagulation with Eliquis within the next 24 hours. Will obtain an echocardiogram. Will monitor the hematologic profile. Clinically and hemodynamically stable and the patient is being admitted to the hospital accordingly. No indication for any thr ombolytic therapy or clot thrombectomy at this point.
--- NOTE | 2024-09-04 16:02 | CA ---
Transthoracic Echo Report Name: Jonah Zimmerman Age: 84 Gender: F : 1940 Exam Date: 09/04/2024 09:23 Exam Location: [facility] Ht (in): 68 Wt (lb): 190 Ordering Physician: Leydi Fox Attending/Referring Phys: [employer] Rosalind Benavides RDCS Procedure CPT: Indications: b/l pulmonary embolism Cardiac Hx: Technical Quality: Fair Contrast 1: Total Dose (mL): Contrast 2: Total Dose (mL): MEASUREMENTS (Male / Female) Normal Values 2D ECHO LV Diastolic Diameter PLAX 3.9 cm 4.2 - 5.9 / 3.9 - 5.3 cm LV Systolic Diameter PLAX 2.7 cm IVS Diastolic Thickness 1.0 cm 0.6 - 1.0 / 0.6 - 0.9 cm LVPW Diastolic Thickness 1.1 cm 0.6 - 1.0 / 0.6 - 0.9 cm LV Relative Wall Thickness 0.5 RV Internal Dim ED PLAX 2.2 cm LVOT Diameter 1.8 cm LA Volume 69.0 cm??? 18 - 58 / 22 - 52 cm??? LA Volume Index 33.6 cm???/m??? 16 - 28 cm???/m??? M-MODE Aortic Root Diameter MM 3.3 cm LA Systolic Diameter MM 5.4 cm LA Ao Ratio MM 1.6 AV Cusp Separation MM 1.3 cm DOPPLER AV Peak Velocity 175.8 cm/s AV Peak Gradient 12.4 mmHg AV Mean Velocity 124.6 cm/s AV Mean Gradient 6.8 mmHg AV Velocity Time Integral 36.5 cm AI Peak Velocity 570.0 cm/s AI Peak Gradient 130.0 mmHg AI Pressure Half Time 609.8 ms LVOT Peak Velocity 99.1 cm/s LVOT Peak Gradient 3.9 mmHg LVOT Velocity Time Integral 20.2 cm LVOT Stroke Volume 53.5 cm??? LVOT Stroke Volume Index 26.7 ml/m??? AV Area Cont Eq vti 1.5 cm??? AV Area Cont Eq pk 1.5 cm??? MV Area PHT 3.9 cm??? Mitral E Point Velocity 59.3 cm/s Mitral A Point Velocity 116.8 cm/s Mitral E to A Ratio 0.5 MV Deceleration Time 195.0 ms MV E' Velocity 4.1 cm/s Mitral E to MV E' Ratio 14.6 TR Peak Velocity 292.6 cm/s TR Peak Gradient 34.2 mmHg Right Ventricular Systolic Press 39.2 mmHg FINDINGS Left Ventricle Mildly increased left ventricular wall thickness. Left ventricular cavity size normal. Normal left ventricular systolic function with no obvious regional wall motion abnormalities. Left ventricular ejection fraction is estimated at 55-60 %. Grade 1 diastolic dysfunction. Right Ventricle Normal right ventricular size and function. Mild pulmonary hypertension. Right Atrium Normal right atrial size. Left Atrium Mildly increased left atrial volume. Mildly increased left atrial area. Mitral Valve Structurally normal mitral valve. Mitral valve thickened. Mild mitral annular calcification. Mild to moderate mitral regurgitation. Aortic Valve Trileaflet aortic valve. No aortic stenosis. Mild aortic regurgitation. Tricuspid Valve Structurally normal tricuspid valve. [id number] tricuspid regurgitation. Pulmonic Valve Structurally normal pulmonic valve. Pericardium No pericardial effusion. Aorta Normal size aortic root and proximal ascending aorta. CONCLUSIONS Left ventricular ejection fraction 55-60% Mild increased left ventricular wall thickness Mildly dilated left atrium RVSP 39 Mild to moderate mitral regurgitation Previewed by: Dr. Obed Cherry DO (Electronically Signed) Final Date: 04 September 2024 16:01
[2024-09-05] MEDS: Apixaban Initiation Dose--VTE 5 MG TAB PO SCH (11:42)
--- NOTE | 2024-09-05 12:32 | P.PN ---
Subjective Progress Note Date: 09/05/24 No new complaints. reports improvement in dyspnea. Would like to return home. Evaluating her O2 status off of oxygen today and dispo anticipated in next 24-48 hours. Gen: In NAD, non-toxic HEENT: normocephalic, atraumatic, hearing acuity is intant, mucous membranes moist CVS: perfusing all extremities well, no pitting edema, Respiratory: symmetric chest expansion, no accessory muscle use, GI: soft, NTTP, ND, : no suprapubic tenderness, no CVA tenderness MSK/Derm: no rashes, cyanosis Neuro: CN II-XII intact, no motor weakness, Psych: cooperative, euthymic mood, judgment and insight is intact Hospital course: Patient is a 80-year-old female with hypertension, hyperlipidemia, history of CVA (2013) who came in for shortness of breath. In the ED, CT angio showed bilateral pulmonary embolisms and right 7 mm pulmonary nodule and cardiomegaly. EKG showed normal sinus rhythm with a rate of [address]-T changes QTc normal at 423 MS. WBC elevated at 11.3, MCV 104, D-dimer elevated at 5.71, troponin 0.018 Assessment/Plan: #. Unprovoked bilateral pulmonary embolism #. Pulmonary nodule, 7 mm D-dimer elevated at 5.71. Troponin negative at 0.018. CT angiography shows bilateral pulmonary embolism. -Cardiac monitoring -Heparin 80 units per kilogram IV drip transitioned to apixaban -Monitor PTT -Echocardiogram pending -Vascular surgery consult, reviewed documentation, appreciate their recommendations -Pulmonology consulted, appreciated #. Leukocytosis #. Macrocytosis WBC elevated at 11.3. MCV ekevated at 104. Hgb normal at 15.7. Patient afebrile and stable -CBC at AM Chronic conditions: #. Hypertension: Lisinopril 50 mg p.o. OD #. Hyperlipidemia #. Depression -Atorvastatin 40 mg p.o. at bedtime -Lipid profile at a.m. -Resume home medications once reconciled CODE STATUS: Full Discussed with: Patient Anticipated discharge place: Home Objective - Vital Signs Vital signs: Vital Signs Temp 98.0 F 09/05/24 08:30 Pulse 68 09/05/24 08:30 Resp 18 09/05/24 08:30 BP 157/87 09/05/24 08:30 Pulse Ox 94 L 09/05/24 08:30 FiO2 Intake & Output 09/04/24 09/05/24 09/05/24 18:59 06:59 18:59 Intake Total 191.535 147.333 342 Output Total 150 Balance 191.535 -2.667 342 Weight 86.183 kg 85.8 kg Intake: Intake, IV Titration 191.535 147.333 Amount Heparin Sod,Pork in 0.45% 191.535 147.333 NaCl 25,000 unit In 0.45 % NaCl 1 250ml.bag @ 18 UNITS/KG/HR 15.513 mls/hr IV .Q16H7M [facility] Rx#: [id number] Oral 342 Output: Urine 150 Other: Voiding Method Toilet Toilet Bedside Commode Bedside Commode # Voids 1 # Bowel Movements 1 - Labs CBC & Chem 7: 09/04/24 08:47 09/03/24 15:45 Labs: Abnormal Lab Results - Last 24 Hours (Table) 09/04/24 09/05/24 Range/Units 16:17 00:17 APTT 96.1 H 74.7 H (22.0-30.0) sec
--- NOTE | 2024-09-05 16:03 | P.PN ---
Subjective Progress Note Date: 09/05/24 84-year-old female patient being seen in the emergency department for acute on top of chronic shortness of breath. The patient came into the ED and the patient was found to have an elevated D-dimer of 5.7. Based on that, the patient was given a CTA of the chest and the patient was diagnosed having boo ateral pulmonary embolism without evidence of any RV strain pattern. Another 7 mm pulmonary nodule was seen in the right lower lobe that needs to be further followed up. There was also a left renal cortical cyst and mild cardiomegaly. Doppler of the lower extremities were essentially negative. The patient is currently no oxygen and she is on room air. Cardiac rhythm is sinus. The troponins were negative and the proBNP level was at 751. The patient is currently on IV heparin. The viral screen has been negative. No recent surgical interventions. She claims that she is quite active and she does not lead a sedentary lifestyle. 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 Hemoglobin is at 15.3, white cell count of 10.7, platelet count is 283. No previous history of DVT or pulmonary embolism. No previous personal or family history of clots. No history of any malignancy. On 09/05/2024, the patient is being seen for a follow-up. The patient is on IV heparin. The patient will be transition to anticoagulation with Eliquis. She has remained hemodynamically stable. She is currently on 2 L of oxygen by nasal cannula with a pulse ox of 93%. Doppler of the lower extremity showed no evidence of any pulmonary embolism. Echocardiogram showed preserved LV function with an ejection fraction of 55 to 60%. The patient has a right ventricular systolic pressure of 98. She has no specific complaints otherwise for now. Labs from yesterday was noted. Objective - Vital Signs Vital signs: Vital Signs Temp 97.9 F 09/05/24 04:50 Pulse 68 09/05/24 04:50 Resp 18 09/05/24 04:50 BP 122/65 09/05/24 04:50 Pulse Ox 92 L 09/05/24 04:50 FiO2 Intake & Output 09/04/24 09/05/24 09/05/24 18:59 06:59 18:59 Intake Total 191.535 147.333 342 Output Total 150 Balance 191.535 -2.667 342 Weight 86.183 kg 85.8 kg Intake: Intake, IV Titration 191.535 147.333 Amount Heparin Sod,Pork in 0.45% 191.535 147.333 NaCl 25,000 unit In 0.45 % NaCl 1 250ml.bag @ 18 UNITS/KG/HR 15.513 mls/hr IV [id number] Rx#: [id number] Oral 342 Output: Urine 150 Other: Voiding Method Toilet Bedside Commode # Voids 1 # Bowel Movements 1 - Exam The patient appeared well nourished and normally developed. Vital signs as documented. Head exam is unremarkable. No scleral icterus or corneal arcus noted. Neck is without jugular venous distension, thyromegaly, or carotid bruits. Carotid upstrokes are brisk bilaterally. Lungs are clear to auscultation and percussion. Cardiac exam reveals the PMI to be normally sized and situated. Rhythm is regular. First and second heart sounds normal. No murmurs, rubs or gallops. Abdominal exam reveals normal bowel sounds, no masses, no organomegaly and no aortic enlargement. Extremities are nonedematous and both femoral and pedal pulses are normal. Examination of the skin revealed no evidence of significant rashes, suspicious appearing nevi or other concerning lesions. Neurologically, the patient is awake and alert and the patient does not have any focal neurological deficit. Cranial nerves are essentially intact. - Labs CBC & Chem 7: 09/04/24 08:47 09/03/24 15:45 Labs: Abnormal Lab Results - Last 24 Hours (Table) 09/04/24 09/05/24 Range/Units 16:17 00:17 APTT 96.1 H 74.7 H (22.0-30.0) sec Assessment and Plan Plan: Acute bilateral unprovoked pulmonary embolism without any RV strain or hemodynamic instability. The patient's cardiac enzymes are negative. She is currently on room air oxygen and a Doppler of the lower extremities are negative. No evidence of any significant pulm hypertension. Her right ventricular systolic pressure around 39. Acute on chronic shortness of breath secondary to above 7 mm right lower lobe pulmonary nodule that needs to be followed up on an outpatient basis. No clear indication for malignancy. Previous history of CVA without any residual deficits Previous history of perforated diverticulosis requiring surgical resection of the bowel and splenectomy Previous history of bilateral hip replacements, no recent orthopedic intervention. Hypertension maintained on Zestril in outpatient basis Plan This is an unprovoked pulmonary embolism. Discontinue IV heparin Start the patient anticoagulation with Eliquis Echo was noted Wean FiO2 as tolerated to maintain saturation above 90% Increase mobility Will follow
[2024-09-06 08:00] LABS: Basophils # (A) 0.1 k/uL (0-0.2); Basophils % (A) 1 %; Eosinophils # (A) 0.3 k/uL (0-0.7); Eosinophils % (A) 3 %; HCT 45.3 % (34.0-46.0); HGB 13.9 gm/dL (11.4-16.0); Hypochromasia Slight; Lymphocytes # (A) 2.5 k/uL (1.0-4.8); Lymphocytes % (A) 28 %; MCH 32.4 pg (25.0-35.0); MCHC 30.7 g/dL (31.0-37.0); MCV 105.5 fL (80.0-100.0); Macrocytosis Slight; Mean Platelet Volume 7.4; Monocytes # (A) 0.8 k/uL (0-1.0); Monocytes % (A) 9 %; Neutrophils % (A) 56 %; Platelet Count 301 k/uL (150-450); RDW 12.9 % (11.5-15.5)
[2024-09-06 08:08] VITALS: BP 151/97; PULSE 79; RESP 20; TEMP 97.5
--- NOTE | 2024-09-06 09:42 | P.DS ---
Providers Date of admission: 09/03/24 20:09 Expected date of discharge: 09/06/24 Attending physician: Gregg Baptiste MD Consults: 09/03/24 18:56 Consult Physician Urgent Consulting Provider: Jorge L Reyez Consult Reason/Comments: bilateral pulmonary embolism Do you want consulting provider notified?: Yes 09/04/24 09:14 Consult Physician Routine Consulting Provider: Leeroy Parmar Consult Reason/Comments: Chronic SOB (1yr), PE Do you want consulting provider notified?: Yes Primary care physician: [facility] Course: #. Unprovoked bilateral pulmonary embolism #. Pulmonary nodule, 7 mm #. Hypertension: #. Hyperlipidemia #. Depression Hospital course: Patient is a 80-year-old female with hypertension, hyperlipidemia, history of CVA (2013) who came in for shortness of breath. In the ED, CT angio showed bilateral pulmonary embolisms and right 7 mm pulmonary nodule and cardiomegaly. EKG showed normal sinus rhythm with a rate of [address]-T changes QTc normal at 423 MS. WBC elevated at 11.3, MCV 104, D-dimer elevated at 5.71, troponin 0.018. Patient was started on heparin drip and then transition to apixaban with pulmonology consultation. Vascular surgery was consulted and did not think there was any indication for EKOS. Echocardiogram was noted and did not demonstrate findings of right heart strain. Patient was ultimately discharged home with prescription for apixaban and instructed follow-up with primary care physician within the next week. Gen: In NAD, non-toxic HEENT: normocephalic, atraumatic, hearing acuity is intant, mucous membranes moist CVS: perfusing all extremities well, no pitting edema, Respiratory: symmetric chest expansion, no accessory muscle use, GI: soft, NTTP, ND, : no suprapubic tenderness, no CVA tenderness MSK/Derm: no rashes, cyanosis Neuro: CN II-XII intact, no motor weakness, Psych: cooperative, euthymic mood, judgment and insight is intact Patient Condition at Discharge: Good Plan - Discharge Summary Discharge Rx Participant: No New Discharge Prescriptions: New Apixaban Initiation Dose--VTE [Eliquis Initiation Dosing for VTE Treatment] See Rx Instructions .ROUTE .COMPLEX #48 tab Acetaminophen Tab [Tylenol] 650 mg PO Q6HR PRN tab PRN Reason: Mild Pain Or Fever > 100.5 Continue Albuterol Inhaler [Ventolin Hfa Inhaler] 2 puff INHALATION RT-Q4H PRN PRN Reason: Shortness Of Breath lisinopriL [Zestril] 5 mg PO DAILY Citalopram Hydrobromide [CeleXA] 40 mg PO DAILY Discharge Medication List Albuterol Inhaler [Ventolin Hfa Inhaler] 2 puff INHALATION RT-Q4H PRN 09/03/24 [History] Citalopram Hydrobromide [CeleXA] 40 mg PO DAILY 09/03/24 [History] lisinopriL [Zestril] 5 mg PO DAILY 09/03/24 [History] Acetaminophen Tab [Tylenol] 650 mg PO Q6HR PRN tab 09/06/24 [Rx] Apixaban Initiation Dose--VTE [Eliquis Initiation Dosing for VTE Treatment] See Rx Instructions .ROUTE .COMPLEX #48 tab 09/06/24 [Rx] Follow up Appointment(s)/Referral(s): Kingston Wayne MD [Primary Care Provider] - 1-2 days Discharge Disposition: HOME SELF-CARE
--- NOTE | 2024-09-06 14:06 | P.PN ---
Subjective Progress Note Date: 09/06/24 84-year-old female patient being seen in the emergency department for acute on top of chronic shortness of breath. The patient came into the ED and the patient was found to have an elevated D-dimer of 5.7. Based on that, the patient was given a CTA of the chest and the patient was diagnosed having boo ateral pulmonary embolism without evidence of any RV strain pattern. Another 7 mm pulmonary nodule was seen in the right lower lobe that needs to be further followed up. There was also a left renal cortical cyst and mild cardiomegaly. Doppler of the lower extremities were essentially negative. The patient is currently no oxygen and she is on room air. Cardiac rhythm is sinus. The troponins were negative and the proBNP level was at 751. The patient is currently on IV heparin. The viral screen has been negative. No recent surgical interventions. She claims that she is quite active and she does not lead a sedentary lifestyle. 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 Hemoglobin is at 15.3, white cell count of 10.7, platelet count is 283. No previous history of DVT or pulmonary embolism. No previous personal or family history of clots. No history of any malignancy. On 09/05/2024, the patient is being seen for a follow-up. The patient is on IV heparin. The patient will be transition to anticoagulation with Eliquis. She has remained hemodynamically stable. She is currently on 2 L of oxygen by nasal cannula with a pulse ox of 93%. Doppler of the lower extremity showed no evidence of any pulmonary embolism. Echocardiogram showed preserved LV function with an ejection fraction of 55 to 60%. The patient has a right ventricular systolic pressure of 98. She has no specific complaints otherwise for now. Labs from yesterday was noted. 09/06/2024, the patient has no complaints and the patient on room air oxygen. The patient is already on anticoagulation with Eliquis. Hemodynamically stable. Clinically stable. No chest pain. Await july he will 15.9. Platelet count is at 301. The patient is about to go home today. Objective - Vital Signs Vital signs: Vital Signs Temp 97.5 F L 09/06/24 08:00 Pulse 79 09/06/24 08:00 Resp 20 10/20/24 08:00 BP 151/97 09/06/24 08:00 Pulse Ox 91 L 09/06/24 08:00 FiO2 21 09/06/24 07:58 Intake & Output 09/05/24 09/06/24 09/06/24 18:59 06:59 18:59 Intake Total 822 240 Output Total 850 Balance 822 -850 240 Weight 87.5 kg Intake: Oral 822 240 Output: Urine 850 Other: Voiding Method Toilet Toilet Bedside Commode Bedside Commode # Voids 1 2 - Exam The patient appeared well nourished and normally developed. Vital signs as documented. Head exam is unremarkable. No scleral icterus or corneal arcus noted. Neck is without jugular venous distension, thyromegaly, or carotid bruits. Carotid upstrokes are brisk bilaterally. Lungs are clear to auscultation and percussion. Cardiac exam reveals the PMI to be normally sized and situated. Rhythm is regular. First and second heart sounds normal. No murmurs, rubs or gallops. Abdominal exam reveals normal bowel sounds, no masses, no organomegaly and no aortic enlargement. Extremities are nonedematous and both femoral and pedal pulses are normal. Examination of the skin revealed no evidence of significant rashes, suspicious appearing nevi or other concerning lesions. Neurologically, the patient is awake and alert and the patient does not have any focal neurological deficit. Cranial nerves are essentially intact. - Labs CBC & Chem 7: 09/06/24 07:29 09/03/24 15:45 Labs: Abnormal Lab Results - Last 24 Hours (Table) 09/06/24 Range/Units 07:29 MCV 105.5 H (80.0-100.0) fL MCHC 30.7 L (31.0-37.0) g/dL Assessment and Plan Plan: Acute bilateral unprovoked pulmonary embolism without any RV strain or hemodynamic instability. The patient's cardiac enzymes are negative. She is currently on room air oxygen and a Doppler of the lower extremities are negative. No evidence of any significant pulm hypertension. Her right ventricular systolic pressure around 39. Acute on chronic shortness of breath secondary to above 7 mm right lower lobe pulmonary nodule that needs to be followed up on an outpatient basis. No clear indication for malignancy. Previous history of CVA without any residual deficits Previous history of perforated diverticulosis requiring surgical resection of the bowel and splenectomy Previous history of bilateral hip replacements, no recent orthopedic intervention. Hypertension maintained on Zestril in outpatient basis Plan This is an unprovoked pulmonary embolism. Continue Eliquis Echo was noted Wean FiO2 as tolerated to maintain saturation above 90% Increase mobility Home today
== END 2024-09-06 13:24 | disposition home or self-care (01) | DRG 176 ==
LOC: EC 14:44 → 3SCARD 20:09 → 3NCARDOBS 21:14 → 3SCARD 09-04 00:31
PROVIDERS: ADMIT Internal Medicine; ATTEND Internal Medicine
DX: I26.99 Other pulmonary embolism without acute cor pulmonale (principal); E78.5 Hyperlipidemia, unspecified; F32.A Depression, unspecified; I11.9 Hypertensive heart disease without heart failure; R91.1 Solitary pulmonary nodule; R53.83 Other fatigue; N28.1 Cyst of kidney, acquired; Z96.643 Presence of artificial hip joint, bilateral; Z90.49 Acquired absence of other specified parts of digestive tract; Z90.81 Acquired absence of spleen; Z87.891 Personal history of nicotine dependence; Z79.899 Other long term (current) drug therapy; Z86.73 Personal history of transient ischemic attack (TIA), and cerebral infarction without residual deficits
CPT/HCPCS: 36415; 71046; 71275; 80053; 83605; 83735; 83880; 84484; 85025; 85379; 85610; 85730; 87636; 93005; 93306; 93970; 94760; 96365; 96366; 99285

== ENCOUNTER → 2024-11-30 | Outpatient (CLI) | payer MEDICARE, BC ==
--- NOTE | 2024-11-30 16:44 | US ---
EXAMINATION TYPE: US kidneys/renal and bladder DATE OF EXAM: 11/30/2024 COMPARISON: NONE CLINICAL INDICATION: Female, 84 years old with history of N18.2 CHRONIC KIDNEY DISEASE, STAGE 2 (MILD ); CKD TECHNIQUE: Grayscale imaging of the bilateral kidneys and urinary bladder: FINDINGS: EXAM MEASUREMENTS: Right Kidney: 7.5x4.4x3.9 cm Inferior pole obscured by bowel gas, unable to obtain accurate measurem ent Left Kidney: 12.2x7.2x6.2 cm Right Kidney: 2.0x2.4x2.4cm superior pole cyst Left Kidney: No hydronephrosis or masses seen Bladder: wnl Bilateral Jets seen: Yes There is no evidence for hydronephrosis at this point in time. No nephrolithiasis is seen. The urin chen bladder is anechoic. exam limited by tight rib spaces. habitus, and bowel gas IMPRESSION: 1. No evidence for acute process. No obstructive uropathy or renal calculus. 2. Right simple appearing renal cysts. [facility], , 11/30/2024 4:42 PM
== END | disposition home or self-care (01) ==
LOC: RADUSWWP 15:51
PROVIDERS: ATTEND Internal Medicine
DX: N18.2 Chronic kidney disease, stage 2 (mild) (principal); N28.1 Cyst of kidney, acquired
CPT/HCPCS: 76770

== ENCOUNTER → 2025-01-15 | Outpatient (CLI) | payer MEDICARE, BC ==
--- NOTE | 2025-01-15 14:39 | MM ---
Reason for Exam: Screening (asymptomatic). Last mammogram was performed 10 year(s) and 0 month(s) ago. Patient History: Menarche at age 15. First Full-Term at age 29. Postmenopausal. Excisional Biopsy on the Left side. Maternal unspecified had breast cancer. Risk Values: Corry 5 year model risk: 1.7%. NCI Lifetime model risk: 1.9%. Prior Study Comparison: 04/24/2002 Bilateral Diagnostic Mammogram, [facility]. 05/16/2004 Bilateral Screening Mammogram, [facility]. 01/05/2015 Bilateral Screening Mammogram, [facility]. Tissue Density: There are scattered areas of fibroglandular density. Findings: Analyzed By CAD. Right breast: There is no suspicious group of microcalcifications or new suspicious mass. Benign-appearing calcifications bilaterally. Left breast: There is no suspicious group of microcalcifications or new suspicious mass. Benign-appearing calcifications left breast. Overall Assessment: Benign, BI-RAD 2 Management: Screening Mammogram of both breasts in [address] [facility] will attempt to contact patient to return for supplemental views and ultrasound if indicated. Patient should continue monthly self-breast exams. A clinical breast exam by your physician is recommended on an annual basis. This exam should not preclude additional follow-up of suspicious palpable abnormalities. Note on Corry scores and lifetime risk: 1. A Corry score greater than 3% is considered moderate risk. If this is the case, consider specialist referral to assess eligibility for a risk reducing agent. 2. If overall lifetime risk for the development of breast cancer is 20% or higher, the patient may qualify for future screening with alternating mammogram and breast MRI. [facility], , 01/15/2025 1:44 PM. Electronically signed and approved by: Augustin Bal DO
== END | disposition home or self-care (01) ==
LOC: RADMAMWWP 13:17
PROVIDERS: ATTEND Internal Medicine Hematology & Oncology
DX: Z12.31 Encounter for screening mammogram for malignant neoplasm of breast (principal); R92.323 Mammographic fibroglandular density, bilateral breasts; R92.1 Mammographic calcification found on diagnostic imaging of breast; I10 Essential (primary) hypertension; R06.02 Shortness of breath; D68.59 Other primary thrombophilia; M12.9 Arthropathy, unspecified; I26.99 Other pulmonary embolism without acute cor pulmonale; Z78.0 Asymptomatic menopausal state
CPT/HCPCS: 77063; 77067

== ENCOUNTER → 2025-02-01 | Outpatient (CLI) | payer MEDICARE, BC ==
--- NOTE | 2025-02-01 12:23 | CT ---
EXAMINATION TYPE: CT chest wo con DATE OF EXAM: 02/01/2025 11:49 AM COMPARISON: None. CLINICAL INDICATION: Female, 85 years old with history of R06.02 Dsypnea, DSYPNEA. ASTHMA. HIGH RESOL UTION., TECHNIQUE: High-resolution noncontrast CT of the chest was performed with the patient in the prone an d supine positions. Lung and mediastinal window settings are submitted. CT DLP: 1142.50 mGycm, Automated exposure control for dose reduction was used. FINDINGS: Stable 7 mm right lower lobe pulmonary nodule. Scattered groundglass infiltrates seen throughout both lung de la cruz could reflect acute inflammatory process. There is evidence of [id number] scattere d subpleural fibrosis. Chronic elevation right hemidiaphragm. No pleural effusion is identified. I d o not see evidence for hilar or mediastinal mass or adenopathy. No significant coronary artery calci fications. IMPRESSION: 1. Nonspecific scattered groundglass infiltrates. 2. 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 3. Stable 7 mm right lower lobe pulmonary nodule. [facility], , 02/01/2025 12:21 PM
== END | disposition home or self-care (01) ==
LOC: RADCTMAIN 11:21
PROVIDERS: ATTEND Internal Medicine Pulmonary Disease
DX: J84.10 Pulmonary fibrosis, unspecified (principal); R91.8 Other nonspecific abnormal finding of lung field
CPT/HCPCS: 71250